=== PATIENT | female | born 1945 | race Caucasian/White ===

== ENCOUNTER 2020-03-03 10:44 | Outpatient (CLI) | payer MEDICARE, OTHER, SELFPAY ==
--- NOTE | ~2020-03-03 | XR_ITS ---
XR hip RT min 3V w AP pelvis 03/03/2020 11:38 Indication: Hip pain Procedure: 4 views of the hips Comparison: No prior studies for comparison. Findings: Mild osteoarthritis of the hips. Pelvic rings are intact. Sacral foramen are symmetric. No fracture or traumatic malalignment. There are surgical fusion changes of the lower lumbar spine with advanced lumbar spondylosis. Impression: 1: No acute bone or joint abnormality. 2: Mild osteoarthritis of the hips. Reviewed, dictated and finalized at location A. NE ADVERTISING MANAGER Impression: 1: No acute bone or joint abnormality. 2: Mild osteoarthritis of the hips.
--- NOTE | ~2020-03-03 | XR_ITS ---
XR lumbar spine min 4V 03/03/2020 11:38 Indication: Low back pain Procedure: 4 views lumbar spine Comparison: 01/08/2019 Findings: There is loss of disc height at L2-3 through L5-S1. There are pedicle screws and fixation h ardware at L3-L5. No acute fracture or traumatic malalignment. No evidence for spondylolisthesis. The re is levoscoliosis. Sacral foramen are symmetric. There are are facet hypertrophic changes at multip le levels. Impression: 1: Moderate-severe lumbar spondylosis with levoscoliosis. Posterior spinal fusion at L3-L5. Reviewed, dictated and finalized at location A. TRIC CRANE OPERATOR Impression: 1: Moderate-severe lumbar spondylosis with levoscoliosis. Posterior spinal fusi on at L3-L5.
== END 2020-03-03 10:45 | disposition home or self-care (01) ==
LOC: ANHIMG 10:54
PROVIDERS: PCP Internal Medicine; Visit Provider Neurological Surgery
DX: M96.1 Postlaminectomy syndrome, not elsewhere classified (principal); M47.896 Other spondylosis, lumbar region; Z98.1 Arthrodesis status; M16.0 Bilateral primary osteoarthritis of hip
CPT/HCPCS: 72110; 73502

== ENCOUNTER 2020-07-21 06:42 | Outpatient (CLI) | payer MEDICARE, OTHER, SELFPAY ==
--- NOTE | ~2020-07-21 | MR_ITS ---
EXAMINATION: MR lumbar spine wo/w con EXAM DATE: 07/21/2020 08:13 INDICATION: Status post lumbar fusion. Low back pain, buttock pain, left leg numbness. TECHNIQUE: Multi-sequential, multiplanar MR images of the lumbar spine were obtained without contrast . Sagittal T1, T2, T2 fat saturation images. Axial T2 weighted images. Axial T1 weighted sequence. Patient was then injected with 20 mL Multihance intravenous contrast and reimaged. Postcontrast axi al and sagittal T1-weighted fat saturation sequences were obtained. Comparison is made to prior exami nation from 02/25/2019. FINDINGS: There is moderate lumbar levoscoliosis centered at the L2-3 interspace level. The L3-5 vert ebral bodies have posterior fusion with L4 laminectomies probable L3 and L5 laminotomies. There is mo derate to severe disc disease L3-L5, moderate at L2-3 and L5-S1. 3 mm anterolisthesis L3 on L4. The v ertebral bodies are otherwise aligned. The conus medullaris terminates at the T12-L1 level and has no rmal signal intensity and morphology. Paraspinal soft tissue is unremarkable. There is some motion on the postcontrast sequences, however there may be some enhancement surrounding the nerve roots above the fusion levels, possible arachnoiditis. Also possible mild nerve root clump ing, but no nodularity to the enhancement. Level by level evaluation: T12-L1: Disc does not extend beyond the endplate margin. Facet arthropathy: None. Neural foraminal stenosis: No stenosis. Central canal stenosis: No stenosis. L1-L2: There is a minimal diffuse disc bulge. Facet arthropathy: Mild. Neural foraminal stenosis: No stenosis. Central canal stenosis: No stenosis. L2-L3: There is a moderate to large diffuse disc bulge. Facet arthropathy: Moderate to severe . Ligamentum flavum enlargement. Neural foraminal stenosis: Moderate right, mild left. Central canal stenosis: Moderate to severe. L3-L4: There is a mild to moderate diffuse disc bulge. Facet arthropathy: Poorly visualized. Neural foraminal stenosis: Moderate right, no left. Central canal stenosis: Posterior decompression. L4-L5: There is a moderate diffuse disc bulge. Facet arthropathy: Poorly visualized. Neural foraminal stenosis: Mild to moderate bilateral. Central canal stenosis: Posterior decompression. L5-S1: There is a mild to moderate diffuse disc bulge. Facet arthropathy: Moderate to severe left, mild right. Neural foraminal stenosis: Moderate left, mild to moderate right. Central canal stenosis: Mild. Compared to 2019, the posterior surgical changes are new. There is been also significant interval pro gression in the moderate to severe central canal stenosis at L2-3. IMPRESSION: 1. Interval posterior fusion, decompressive surgical changes L3-5. 2. 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 3. Spondylosis as above. Reviewed, dictated and finalized at location D.
[2020-07-21 07:34] LABS: Estimated Glomerular Filt Rate 54
== END 2020-07-21 06:43 | disposition home or self-care (01) ==
PROVIDERS: PCP Internal Medicine; Visit Provider Neurological Surgery
DX: Z98.1 Arthrodesis status (principal); M47.896 Other spondylosis, lumbar region
CPT/HCPCS: 72158; A9577

== ENCOUNTER 2020-11-04 12:02 | Outpatient (CLI) | payer MEDICARE, OTHER, SELFPAY ==
--- NOTE | ~2020-11-04 | MM_ITS ---
EXAMINATION: MM screening [facility] BI w ramu HISTORY: Screening mammogram TECHNIQUE: Craniocaudal and mediolateral oblique 3-D tomosynthesis images were obtained and synthetic 2-D images were generated. CAD analysis was submitted and interpreted. COMPARISON: 06/25/2018, 06/05/2018, 04/18/2018, 01/07/2014 BREAST PARENCHYMAL COMPOSITION: The breasts are heterogeneously dense, which may obscure small masses . FINDINGS: There is no evidence of suspicious mass, calcification, or architectural distortion to sugg est malignancy in either breast. There has been no suspicious interval change. IMPRESSION: 1. No mammographic evidence of malignancy. 2. Recommend routine screening mammography in one year. BI-RADS Category 1: Negative Reviewed, dictated and finalized at location A.
== END 2020-11-04 12:03 | disposition home or self-care (01) ==
LOC: ANHIMG 12:04
PROVIDERS: PCP Internal Medicine; Visit Provider Nurse Practitioner
DX: Z12.31 Encounter for screening mammogram for malignant neoplasm of breast (principal)
CPT/HCPCS: 77063; 77067

== ENCOUNTER 2020-12-23 02:22 | Day surgery (SDC) | payer MEDICARE, OTHER, SELFPAY ==
--- NOTE | 2020-12-22 12:59 | WPDANESEPPF ---
Anes - Initial Pre Proc Eval Procedure: Operation Date: 12/23/20 08:30 Proposed Procedures p Screening Colonoscopy - Rickey Anderson MD Date/Time: 12/22/20 12:59 Surgeon: Rickey Anderson MD Pre Op Diagnosis: hx of colon polyps Patient Data Age: 75 Gender: F Height: Weight: 100 kg Allergies Allergy/AdvReac Type Severity Reaction Status Date / Time No Known Allergies Allergy Verified 12/23/20 07:40 Home Medications Medication Instructions Recorded Confirmed Type Glucosamine Chondroitin 1 tablet PO DAILY 02/11/19 12/23/20 History [place]-3 1 tablet PO DAILY 02/11/19 12/23/20 History digoxin 125 mcg PO DAILY 02/11/19 12/23/20 History gemfibrozil 600 mg tablet 600 mg PO BID tablet 10/10/19 12/23/20 History pregabalin 75 mg capsule 75 mg PO TID #60 cap 10/10/19 12/23/20 Rx terbinafine HCl 250 mg tablet 250 mg PO DAILY 09/14/20 12/23/20 History metformin 500 mg tablet,extended 500 mg PO DAILY #90 tablet 09/28/20 12/23/20 Rx release 24 hr levothyroxine 50 mcg tablet See Rx Instructions .ROUTE 12/07/20 12/23/20 Rx .COMPLEX #90 tablet lisinopril 20 mg tablet See Rx Instructions .ROUTE 12/07/20 12/23/20 Rx .COMPLEX #90 tablet rosuvastatin 10 mg tablet See Rx Instructions .ROUTE 12/07/20 12/23/20 Rx .COMPLEX #90 tablet Patient hx anesthesia problems: none Family hx anesthesia problems: none Results Review: All pre-operative results and documents have been reviewed as part of the pre-operative evaluation. [facility] Past Medical History Medical History (Updated 12/22/20 @ 13:00 by Bladimir Young DO) Arthritis of knee Diabetes type 2, controlled Headache Hyperlipidemia Hypertension Hypothyroidism Irregular heart rate Knee problem Normal colonoscopy 12/16/2013 Trigger finger, right middle finger Family History Family History Father Family history of heart disease in male family member before age 55 Sibling Family history of heart disease in male family member before age 55 Social History Social History (Updated 10/28/20 @ 12:20 by ASHLEE Castellano Smoking packs per day: 1 Smoking cigarettes per day: 20.0 Years smoked: 25 Smoking pack-years: 25.00 Smoking status: Former smoker Tobacco type: cigarettes Second hand tobacco smoke exposure: No Smoking end date: 03/20/95 Alcohol intake: current Drinks per week: 2 Alcohol use details: occasionally Substance use: never Living arrangements: with family Gender identity (if verbalized by the patient): Female Anes - Eval Final PreProcedure Day of Procedure 12/22/20 12:59 Patient weight: obese Heart: regular rate and rhythm Lungs: clear to auscultation and normal air movement Airway: Mallampati scale class II Neurological: alert and oriented Last oral intake: >/= 8 hours ASA classification: III Emergent: no Anesthetic plan: proceed Anesthesia type and monitoring: general GIVS and standard monitoring Results Review: All pre-operative results and documents have been reviewed as part of the pre-operative evaluation. Informed Consent: The patient's anesthetic plan and its attendant risks and benefits were discussed with the patient/family/POA. Questions were solicited and answers provided to the satisfaction of the patient/family/POA.
[2020-12-23 07:40] VITALS: BMI 33.8
[2020-12-23 07:41] VITALS: BP 181/82; PULSE 78; RESP 16; TEMP 35.9; O2SAT 98
[2020-12-23] MEDS: LACTATED RINGERS 1,000 ML 150 ML IV CONT (07:46)
[2020-12-23 07:53] LABS: Glucose Point of Care 114 mg/dl (65-105)
--- NOTE | 2020-12-23 07:55 | WPDGICN ---
Assessment and Plan Assessment and plan (1) History of colon polyps: Code(s): Z86.010 - Personal history of colonic polyps Status: Acute Assessment and Plan: Patient has a history of colon polyps removed 2013. Plan is for surveillance colonoscopy at this time. Further recommendations will be given after endoscopy. GI Consult Note Consult date/time: 12/23/20 07:55 HPI: Nica Wallace is a 75 year old female Presents for screening colonoscopy. Patient has a history of colon polyps identified by colonoscopy in 2013. She reports that her current weight appetite bowel movements are normal. She denies abdominal pain. She has had no bleeding. Family history is noncontributory. Review of Systems Review of Systems: All systems reviewed & are unremarkable except as noted in HPI and below PMFSH Past Medical History Medical History (Updated 12/22/20 @ 13:00 by Bladimir Young DO) Arthritis of knee Diabetes type 2, controlled Headache Hyperlipidemia Hypertension Hypothyroidism Irregular heart rate Knee problem Normal colonoscopy 12/16/2013 Trigger finger, right middle finger Family History Family History Father Family history of heart disease in male family member before age 55 Sibling Family history of heart disease in male family member before age 55 Social History Social History (Updated 10/28/20 @ 12:20 by Citlali Platt CNA) Smoking packs per day: 1 Smoking cigarettes per day: 20.0 Years smoked: 25 Smoking pack-years: 25.00 Smoking status: Former smoker Tobacco type: cigarettes Second hand tobacco smoke exposure: No Smoking end date: 03/20/95 Alcohol intake: current Drinks per week: 2 Alcohol use details: occasionally Substance use: never Living arrangements: with family Gender identity (if verbalized by the patient): Female Meds Home Medications and Allergies Home Medications Medication Instructions Recorded Confirmed Type Glucosamine Chondroitin 1 tablet PO DAILY 02/11/19 12/23/20 History [place]flake-3 1 tablet PO DAILY 02/11/19 12/23/20 History digoxin 125 mcg PO DAILY 02/11/19 12/23/20 History gemfibrozil 600 mg tablet 600 mg PO BID tablet 10/10/19 12/23/20 History pregabalin 75 mg capsule 75 mg PO TID #60 cap 10/10/19 12/23/20 Rx terbinafine HCl 250 mg tablet 250 mg PO DAILY 09/14/20 12/23/20 History metformin 500 mg tablet,extended 500 mg PO DAILY #90 tablet 09/28/20 12/23/20 Rx release 24 hr levothyroxine 50 mcg tablet See Rx Instructions .ROUTE 12/07/20 12/23/20 Rx .COMPLEX #90 tablet lisinopril 20 mg tablet See Rx Instructions .ROUTE 12/07/20 12/23/20 Rx .COMPLEX #90 tablet rosuvastatin 10 mg tablet See Rx Instructions .ROUTE 12/07/20 12/23/20 Rx .COMPLEX #90 tablet Allergies Allergy/AdvReac Type Severity Reaction Status Date / Time No Known Allergies Allergy Verified 12/23/20 07:40 Vital Signs Vital Signs - 24 hr 12/23/20 07:41 Temperature 96.7 F L Pulse Rate 78 Respiratory Rate 16 Blood Pressure 181/82 H Pulse Oximetry 98 Exam Narrative: Physical exam reveals patient be alert. Vital signs stable. HEENT exam is unremarkable. Patient is anicteric. Lungs are clear to auscultation and percussion. Heart is without murmur or extra sounds. Abdominal exam bowel sounds are present soft nontender with no organomegaly. Digital external rectal exam is normal.
[2020-12-23 08:46] VITALS: BP 133/70; PULSE 76; RESP 21; O2SAT 96
[2020-12-23 08:56] VITALS: BP 132/66; PULSE 64; RESP 15; O2SAT 100
[2020-12-23 09:06] VITALS: BP 144/75; PULSE 60; RESP 18; O2SAT 100
== END 2020-12-23 09:38 | disposition home or self-care (01) ==
PROVIDERS: PCP Internal Medicine; Visit Provider Internal Medicine Gastroenterology
PROC: 0DJD8ZZ Inspection of Lower Intestinal Tract, Via Natural or Artificial Opening Endoscopic (ICD-10-PCS; CPT 45378; principal; 2020-12-23 08:30)
DX: Z12.11 Encounter for screening for malignant neoplasm of colon (principal); D12.2 Benign neoplasm of ascending colon; K63.5 Polyp of colon; K64.8 Other hemorrhoids; E11.9 Type 2 diabetes mellitus without complications; E78.5 Hyperlipidemia, unspecified; I10 Essential (primary) hypertension; E03.9 Hypothyroidism, unspecified; Z87.891 Personal history of nicotine dependence; E66.9 Obesity, unspecified; Z68.33 Body mass index [BMI] 33.0-33.9, adult; Z79.84 Long term (current) use of oral hypoglycemic drugs
CPT/HCPCS: 45385; 82948; 88305; J2704; J7120

== ENCOUNTER 2021-01-11 14:10 | Emergency (ER) | payer MEDICARE, OTHER, SELFPAY ==
[2021-01-11 14:20] VITALS: BP 155/71; PULSE 73; RESP 16; TEMP 36.1; O2SAT 99
--- NOTE | 2021-01-11 14:35 | ED.GENADULT ---
HPI - General Adult General Chief complaint: Epistaxis Stated complaint: High blood pressure,nose bleeding Time Seen by Provider: 01/11/21 14:30 Source: patient, RN notes reviewed and old records reviewed Mode of arrival: ambulatory Limitations: no limitations History of Present Illness HPI narrative: 75-year-old female presents to express care with complaints of awakening this morning with a nose bleed that took quite a while to get it to stop by applying pressure to her nose. Patient denies any headache, dizziness or any sinus congestion or other ill symptoms. She states that she then again got a nose bleed this afternoon and she checked her blood pressure at home with her machine stating that her systolic blood pressure was over 200. Patient states that her nose quit bleeding on route to express care. Patient on triage has blood pressure of 155/71 and rechecked manually with reading of 160/80 obtained. Patient state that she has not seen her PCP for about a year. and has been on same blood pressure medication for quite some time. Patient has steady gait with no dizziness stated, no headache with patient alert and oriented X3. MD complaint: Blood pressure elevated at home with episode of nose bleed Related Data Home Medications Medication Instructions Recorded Confirmed Glucosamine Chondroitin 1 tablet PO DAILY 02/11/19 01/12/21 [place]-3 1 tablet PO DAILY 02/11/19 01/12/21 digoxin 125 mcg PO DAILY 02/11/19 01/12/21 gemfibrozil 600 mg tablet 600 mg PO BID tablet 10/10/19 01/12/21 terbinafine HCl 250 mg tablet 250 mg PO DAILY 09/14/20 01/12/21 Allergies Allergy/AdvReac Type Severity Reaction Status Date / Time No Known Allergies Allergy Verified 01/12/21 08:00 Review of Systems Review of Systems: CONSTITUTIONAL: Denies fever, chills, or sweats. EYES: Denies visual changes, redness, or discharge. ENT: Denies rhinorrhea, congestion, sore throat, or otalgia, reported episodes of epistaxis X2 today CARDIOVASCULAR: Denies chest pain, palpitations, or edema. RESPIRATORY: Denies cough or dyspnea. GASTROINTESTINAL: Denies abdominal pain, nausea, vomiting, or diarrhea. GENITOURINARY: Denies dysuria or hematuria. SKIN: Denies rash or itching. MUSCULOSKELETAL: Denies back pain, joint pain, or myalgia. NEUROLOGIC: Denies headache, numbness, or weakness. PSYCHIATRIC: Denies anxiety or depression. All systems reviewed & are unremarkable except as noted in HPI and below PMFSH Past Medical History Medical History (Updated 01/14/21 @ 10:44 by Serena Rodas NP) Arthritis of knee Diabetes type 2, controlled Headache Hyperlipidemia Hypertension Hypothyroidism Irregular heart rate Knee problem Normal colonoscopy 12/16/2013 Trigger finger, right middle finger Surgical History Surgical History (Updated 01/14/21 @ 10:32 by Serena Rodas NP) History of spinal surgery Family History Family History Father Family history of heart disease in male family member before age 55 Sibling Family history of heart disease in male family member before age 55 Social History Social History (Updated 01/12/21 @ 07:59 by Citlali Platt CNA) Smoking packs per day: 1 Smoking cigarettes per day: 20.0 Years smoked: 25 Smoking pack-years: 25.00 Tobacco type: cigarettes Second hand tobacco smoke exposure: No Smoking end date: 03/20/95 Alcohol intake: current Drinks per week: 2 Alcohol use details: occasionally Substance use: never Substance use type: does not use Gender identity (if verbalized by the patient): Female Comments At time of signature agree with nursing documentation of pst medical, surgical, social and family hitory. There is no pertinent family history that is relevant to presenting complaint. Exam Narrative: GENERAL: Well-appearing, well-nourished, and in no acute distress. HEAD: Normocephalic, atraumatic. EYES: PERRLA and EOMI. EN
== END 2021-01-11 15:03 | disposition home or self-care (01) ==
PROVIDERS: Emergency Provider Registered Nurse; PCP Internal Medicine
DX: R04.0 Epistaxis (principal); I11.0 Hypertensive heart disease with heart failure; F17.210 Nicotine dependence, cigarettes, uncomplicated; E11.9 Type 2 diabetes mellitus without complications; E78.5 Hyperlipidemia, unspecified; E03.9 Hypothyroidism, unspecified; M17.10 Unilateral primary osteoarthritis, unspecified knee
CPT/HCPCS: 99211; G0463

== ENCOUNTER 2021-01-11 20:24 | Emergency (ER) | payer MEDICARE, OTHER, SELFPAY ==
[2021-01-11] VITALS (7 sets, daily range): BP systolic 141–202; BP diastolic 74–105; PULSE 65–75; RESP 13–22; TEMP 36.6; O2SAT 95–97
--- NOTE | 2021-01-11 20:35 | ECG_ITS ---
Measurements Intervals [place] Rate: 68 P: 22 WV: 157 QRS: 8 QRSD: 99 T: 61 QT: 395 QTc: 420 Interpretive Statements SINUS RHYTHM BASELINE WANDER- V4 NORMAL ECG Electronically Signed On 01-11-2021 23:00:13 CDT by Sameer Bledsoe D.O.
[2021-01-11 21:00] LABS: Basophils Absolute Auto 0.1 K/mm3 (0.0-0.1); Basophils Percent Auto 1.4 % (0.2-1.2); Eosinophils Absolute Auto 0.1 K/mm3 (0-0.3); Eosinophils Percent Auto 2.1 % (0-4.4); Hematocrit 44.7 % (37.0-47.0); Hemoglobin 15.3 g/dL (12.0-15.0); Immature Granulocyte Absolute 0.01 K/mm3 (0.00-0.031); Immature Granulocyte Percent A 0.2 % (0-0.5); Lymphocytes Percent Auto 34.2 % (18.3-44.2); Mean Corpuscular HGB Conc 34.2 g/dl (32-36); Mean Corpuscular Hemoglobin 30.5 pg (26-34); Mean Platelet Volume 9.9 fl (7.4-10.4); Monocytes Absolute Auto 0.4 K/mm3 (0.1-0.6); Monocytes Percent Auto 9.8 % (2.6-8.5); Neutrophils Absolute Auto 2.3 K/mm3 (1.3-6.7); Neutrophils Percent Auto 52.3 % (45.5-73.1); Platelet Count Result 200 k/mm3 (150-375); Red Blood Count 5.02 M/mm3 (4.2-5.4); Red Cell Distribution Width 13.1 % (11.5-14.5); White Blood Count 4.4 K/mm3 (4.5-10.0)
[2021-01-11 21:12] LABS: Alanine Aminotransferase 38 U/L (4-35); Albumin Level 4.6 g/dL (3.5-5.1); Alkaline Phosphatase 82 U/L (38-126); Anion Gap 11 mmol/L (8-16); Aspartate Amino Transferase 50 U/L (14-36); Bilirubin,Total 0.6 mg/dL (0.2-1.3); Blood Urea Nitrogen 21 mg/dL (7-17); Calcium 10.3 mg/dL (8.4-10.2); Carbon Dioxide 25 mmol/L (22-30); Chloride 107 mmol/L (98-107); Estimated CRCL calculation 51 ml/min; Estimated Glomerular Filt Rate 54; Glucose 130 mg/dL (65-110); Sodium 143 mmol/L (137-145)
[2021-01-11 21:33] LABS: Add Urine Microscopic? YES; Appearance Urine Cloudy (Clear); Bilirubin Urine Negative (Negative); Blood Urine Negative (Negative); Color Urine Yellow (Yellow); Glucose Urine UA Negative (Negative); Ketones Urine Negative (Negative); Leukocyte Esterase Ur 1+ LEU/UL (Negative); Mucus Urine Rare /lpf; Nitrate Urine Negative (Negative); Protein Urine Negative (Negative); Specific Grav Ur 1.017 (1.001-1.035); Squamous Epithelial Cell Urine Occasional /hpf (Few); Urobilinogen Urine Negative mg/dL (<2.0)
--- NOTE | 2021-01-11 22:03 | ED.GENADULT ---
HPI - General Adult General Chief complaint: Recheck/Abnormal Lab/Rx Stated complaint: high blood pressure Time Seen by Provider: 01/11/21 22:02 Source: patient Mode of arrival: ambulatory Limitations: no limitations History of Present Illness HPI narrative: Patient is a 75-year-old female complaining of elevated blood pressure at home, 230s over 100s . Patient is asymptomatic with the elevated blood pressure. Patient did state that she had a brief nosebleed earlier but now resolved. Patient denies any headache, dizziness, speech or visual disturbance, focal weakness or numbness, unsteady gait, chest pain, shortness of breath, abdominal pain, nausea or vomiting. Related Data Home Medications Medication Instructions Recorded Confirmed Glucosamine Chondroitin 1 tablet PO DAILY 02/11/19 01/11/21 [place]-3 1 tablet PO DAILY 02/11/19 01/11/21 digoxin 125 mcg PO DAILY 02/11/19 01/11/21 gemfibrozil 600 mg tablet 600 mg PO BID tablet 10/10/19 01/11/21 terbinafine HCl 250 mg tablet 250 mg PO DAILY 09/14/20 01/11/21 Allergies Allergy/AdvReac Type Severity Reaction Status Date / Time No Known Allergies Allergy Verified 01/11/21 14:15 Review of Systems Review of Systems: All systems reviewed & are unremarkable except as noted in HPI and below Constitutional: Constitutional: Denies body ache(s), Denies chills, Denies excessive sweating, Denies fatigue, Denies fever(s), Denies headache(s), Denies lethargy, Denies malaise, Denies weakness and Denies weight loss Eyes: Eyes: Denies blurry vision, Denies change in vision and Denies loss of vision ENT: Denies dizziness, Denies ear discharge, Denies headache(s), Denies lip swelling, Denies epistaxis, Denies nasal congestion, Denies neck pain, Denies throat swelling and Denies tongue swelling Cardiovascular: Cardiovascular: Denies chest pain, Denies chest pain at rest, Denies chest pain with activity, Denies diaphoresis, Denies rapid heart rate, Denies edema, Denies irregular heart rhythm, Denies lightheadedness, Denies palpitations, Denies dyspnea and Denies dyspnea on exertion Respiratory: Respiratory: Denies chest congestion, Denies cough, Denies hemoptysis, Denies dyspnea and Denies dyspnea on exertion Gastrointestinal: Gastrointestinal: Denies abdominal pain, Denies melena, Denies hematochezia, Denies diarrhea, Denies nausea, Denies vomiting and Denies hematemesis Musculoskeletal: Musculoskeletal: Denies abnormal gait, Denies deformity, Denies joint swelling, Denies limited range of motion, Denies neck pain and Denies numbness Neurologic: Denies Abnormal speech present, Denies abnormal gait, Denies confusion, Denies dizziness, Denies headache(s), Denies focal weakness, Denies loss of vision, Denies numbness, Denies Other visual disturbances, Denies Sensory deficit (Neuro) and Denies weakness Psychiatric: Psychiatric: Denies confusion, Denies depression, Denies auditory hallucinations, Denies homicidal ideation and Denies suicidal ideation Endocrine: Endocrine: Denies cold intolerance, Denies excessive sweating, Denies fatigue, Denies heat intolerance and Denies palpitations Hematologic/Lymphatic: Hematologic/Lymphatic: Denies easy bleeding and Denies easy bruising Allergic/Immunologic: Allergic/Immunologic: Denies lip swelling, Denies throat swelling and Denies tongue swelling PMFSH Past Medical History Medical History Arthritis of knee Diabetes type 2, controlled Headache Hyperlipidemia Hypertension Hypothyroidism Irregular heart rate Knee problem Normal colonoscopy 12/16/2013 Trigger finger, right middle finger Family History Family History Father Family history of heart disease in male family member before age 55 Sibling Family history of heart disease in male family member before age 55 Social History Social History (Reviewed 01/11/21 @ 22:04 by Mitchel Gutiérrez
== END 2021-01-11 23:56 | disposition home or self-care (01) ==
PROVIDERS: Physician Assistant; Emergency Provider Emergency Medicine; PCP Internal Medicine
DX: I10 Essential (primary) hypertension (principal); E11.9 Type 2 diabetes mellitus without complications; E78.5 Hyperlipidemia, unspecified; E03.9 Hypothyroidism, unspecified; M17.10 Unilateral primary osteoarthritis, unspecified knee; Z87.891 Personal history of nicotine dependence; Z79.84 Long term (current) use of oral hypoglycemic drugs
CPT/HCPCS: 36415; 80053; 81001; 85025; 93005; 99282; 99283

== ENCOUNTER 2021-05-14 09:25 | Emergency (ER) | payer MEDICARE, OTHER, SELFPAY ==
[2021-05-14 09:41] VITALS: BP 127/67; PULSE 79; RESP 16; TEMP 36.8; O2SAT 99
--- NOTE | 2021-05-14 10:20 | ED.SKABFB ---
HPI - Skin/Abscess/Foreign Bdy General Chief complaint: Skin/Abscess/Foreign Body Stated complaint: Sore on butt Time Seen by Provider: 05/14/21 10:20 Source: patient Mode of arrival: ambulatory Limitations: no limitations History of Present Illness HPI narrative: Nica Espinoza is a 75 yo female with a PMH of high blood pressure, high cholesterol, hypothyroid, diabetes, neuropathy who comes to [facility] with an abscess of the left upper gluteal gluteus near the anal cleft that started a few weeks ago but is the last few days is gotten enlarged and sore Related Data Home Medications Medication Instructions Recorded Confirmed Glucosamine Chondroitin 1 tablet PO DAILY 02/11/19 05/14/21 [place]-3 1 tablet PO DAILY 02/11/19 05/14/21 gemfibrozil 600 mg tablet 600 mg PO BID tablet 10/10/19 05/14/21 digoxin 125 mcg (0.125 mg) tablet 125 mcg PO DAILY 03/08/21 05/14/21 Allergies Allergy/AdvReac Type Severity Reaction Status Date / Time No Known Allergies Allergy Verified 05/07/21 13:07 Review of Systems Review of Systems: CONSTITUTIONAL: Denies fever, chills, sweats. EYES: Denies visual changes, redness, discharge. ENT: Denies rhinorrhea, congestion, sore throat, otalgia. CARDIOVASCULAR: Denies chest pain, palpitations, edema. RESPIRATORY: Denies dyspnea, wheezing, cough GASTROINTESTINAL: Denies abdominal pain, nausea, vomiting, diarrhea. GENITOURINARY: Denies dysuria, hematuria, abnormal discharge SKIN: Denies rash or itching. Abscess of upper left gluteal area NEUROLOGIC: Denies numbness, or focal weakness. PSYCHIATRIC: Denies anxiety or depression. [facility] Past Medical History Medical History Arthritis of knee Diabetes type 2, controlled Headache Hyperlipidemia Hypertension Hypothyroidism Irregular heart rate Knee problem Normal colonoscopy 12/16/2013 Trigger finger, right middle finger Surgical History Surgical History History of spinal surgery Family History Family History Father Family history of heart disease in male family member before age 55 Sibling Family history of heart disease in male family member before age 55 Social History Social History Smoking packs per day: 1 Smoking cigarettes per day: 20.0 Years smoked: 25 Smoking pack-years: 25.00 Smoking status: Former smoker Tobacco type: cigarettes Second hand tobacco smoke exposure: No Smoking end date: 03/20/95 Alcohol intake: current Drinks per week: 2 Alcohol use details: occasionally Substance use: never Substance use type: does not use Gender identity (if verbalized by the patient): Female Comments At time of signature, I agree with nursing past medical, surgical, social and family history. There is no relevant family history pertinent to the presenting complaint. Exam Narrative: GENERAL: This is a well-nourished, well-developed patient, in mild distress. HEAD: normocephalic, atraumatic. EYES: Sclera clear/white. Vision is grossly intact. EARS: External ears normal, Hearing grossly intact. NOSE: External nose normal without nasal discharge, nares without redness, no rhinorrhea. THROAT: Mucous membranes moist, NECK: Neck supple, non-tender CARDIOVASCULAR: Regular rate and rhythm without murmurs, gallops, or rubs. RESPIRATORY: Clear to auscultation. Breath sounds equal bilaterally. No wheezes, rales, or rhonchi. GASTROINTESTINAL: Abdomen soft, non-tender, SKIN: warm, intact with no suspicious lesions or rash, good texture and turgor. Abscess to left upper gluteal area, red and tender NEURO: awake, alert, and oriented to person, place and time. There were no obvious focal neurologic abnormalities. Steady gait EXTREMITIES: Normal range of motion. BACK: Nontender without deformity
--- NOTE | 2021-05-14 10:39 | PC.NURSE ---
pt moved to exam room 1. pt lying down on stretcher.
--- NOTE | 2021-05-14 11:11 | PC.NURSE ---
wound drained, irrigated and packed by Catarino Graham CNP
== END 2021-05-14 11:29 | disposition home or self-care (01) ==
PROVIDERS: Emergency Provider Nurse Practitioner; PCP Internal Medicine
DX: L98.9 Disorder of the skin and subcutaneous tissue, unspecified (principal); L02.31 Cutaneous abscess of buttock; Z87.891 Personal history of nicotine dependence; E78.5 Hyperlipidemia, unspecified; I10 Essential (primary) hypertension; E03.9 Hypothyroidism, unspecified; M17.10 Unilateral primary osteoarthritis, unspecified knee; E11.40 Type 2 diabetes mellitus with diabetic neuropathy, unspecified
CPT/HCPCS: 10061; 99213; G0463

== ENCOUNTER 2021-09-14 09:09 | Emergency (ER) | payer MEDICARE, OTHER, SELFPAY ==
[2021-09-14 09:17] VITALS: BP 191/105; PULSE 101; RESP 18; O2SAT 97
--- NOTE | 2021-09-14 09:32 | ED.EPISTAXIS ---
HPI - Epistaxis General Chief complaint: Epistaxis Stated complaint: nosebleed Time Seen by Provider: 09/14/21 09:20 History of Present Illness HPI Narrative: Pt presents with nosebleed for about 30 minutes. Pt has intermittent nosebleeds but usually mild. Pt says her BP is elevated and thinks this may be contributing. Pt denies GROVE. Pt was about to take her BP pill when this started. Related Data Home Medications Medication Instructions Recorded Confirmed Glucosamine Chondroitin 1 tablet PO DAILY 02/11/19 08/04/21 Harold-3 1 tablet PO DAILY 02/11/19 08/04/21 gemfibrozil 600 mg tablet 600 mg PO BID 10/10/19 08/04/21 digoxin 125 mcg (0.125 mg) tablet 125 mcg PO DAILY 03/08/21 08/04/21 Allergies Allergy/AdvReac Type Severity Reaction Status Date / Time No Known Allergies Allergy Verified 08/04/21 07:42 Review of Systems Review of Systems: All systems reviewed & are unremarkable except as noted in HPI and below PMFSH Past Medical History Medical History Arthritis of knee Diabetes type 2, controlled Headache Hyperlipidemia Hypertension Hypothyroidism Irregular heart rate Knee problem Normal colonoscopy 12/16/2013 Trigger finger, right middle finger Surgical History Surgical History History of spinal surgery Family History Family History Father Family history of heart disease in male family member before age 55 Sibling Family history of heart disease in male family member before age 55 Social History Social History Smoking packs per day: 1 Smoking cigarettes per day: 20.0 Years smoked: 25 Smoking pack-years: 25.00 Smoking status: Former smoker Tobacco type: cigarettes Second hand tobacco smoke exposure: No Smoking end date: 03/20/95 Alcohol intake: current Drinks per week: 2 Alcohol use details: occasionally Substance use: never Substance use type: does not use Gender identity (if verbalized by the patient): Female Exam Const: General: healthy appearing Nutritional Appearance: well nourished Orientation/consciousness: patient oriented x3 Limitations: no limitations HENMT: General nose exam: Epistaxis present (minor bleeding noted) Eyes: Pupils: Equal, round and reactive pupils present EOM: EOMs intact bilaterally Direct Ophthalmoscopy: no photophobia Neck: Neck: normal visual inspection, no lymphadenopathy and no meningeal signs Chest: Chest palpation & inspection: normal inspection of the chest Resp: Effort & Inspection: normal respiratory effort Auscultation: clear to auscultation bilaterally Cardio: Rate: regular rate Rhythm: regular rhythm GI: GI Palp: Yes Soft to palpation Auscultation: normal bowel sounds Skin: General skin exam: normal color Rashes: no rashes Wounds: no wounds Neuro: General: patient oriented x3, moves all extremities, no meningeal signs and no focal motor deficits Cranial nerves: Yes Nystagmus not present Speech: normal speech Gait exam (Neuro): Normal gait present Extrem: General: normal to inspection Psych: Mental Status: mental status grossly normal Affect: normal affect Attitude: cooperative Course Vital Signs Vital signs: Vital Signs Pulse Rate 101 H 09/14/21 09:17 Respiratory Rate 18 09/14/21 09:17 Blood Pressure 191/105 H 09/14/21 09:17 Pulse Oximetry 97 09/14/21 09:17 Oxygen Delivery Room Air 09/14/21 09:17 Pulse Rate 67 09/14/21 11:21 Respiratory Rate 18 09/14/21 11:21 Blood Pressure 129/61 09/14/21 11:21 Pulse Oximetry 98 09/14/21 11:21 Oxygen Delivery Room Air 09/14/21 09:17 MDM - Epistaxis Lab Data Result diagrams: 09/14/21 09:42 09/14/21 09:42 Labs: Lab Results 09/14/21 09/14/21 09/14/21 Range/Units
[2021-09-14 09:51] LABS: Basophils Absolute Auto 0.1 K/mm3 (0.0-0.1); Basophils Percent Auto 1.4 % (0.2-1.2); Eosinophils Absolute Auto 0.1 K/mm3 (0-0.3); Eosinophils Percent Auto 2.1 % (0-4.4); Hematocrit 44.5 % (37.0-47.0); Hemoglobin 15.4 g/dL (12.0-15.0); Immature Granulocyte Absolute 0.01 K/mm3 (0.00-0.031); Immature Granulocyte Percent A 0.2 % (0-0.5); Lymphocytes Percent Auto 30.2 % (18.3-44.2); Mean Corpuscular HGB Conc 34.6 g/dl (32-36); Mean Corpuscular Hemoglobin 30.1 pg (26-34); Mean Corpuscular Volume 87.1 fl (80-100); Mean Platelet Volume 9.8 fl (7.4-10.4); Monocytes Absolute Auto 0.5 K/mm3 (0.1-0.6); Monocytes Percent Auto 10.7 % (2.6-8.5); Neutrophils Absolute Auto 2.4 K/mm3 (1.3-6.7); Neutrophils Percent Auto 55.4 % (45.5-73.1); Platelet Count Result 191 k/mm3 (150-375); Red Blood Count 5.11 M/mm3 (4.2-5.4); Red Cell Distribution Width 12.7 % (11.5-14.5); White Blood Count 4.3 K/mm3 (4.5-10.0)
[2021-09-14 10:02] LABS: Prothrombin Time 12.9 Seconds (11.1-14.7)
[2021-09-14 10:03] LABS: Partial Thromboplastin Time 30.6 SECONDS (22.3-36.8)
[2021-09-14 10:08] LABS: Alanine Aminotransferase 34 U/L (6-35); Albumin Level 4.8 g/dL (3.5-5.1); Alkaline Phosphatase 65 U/L (38-126); Anion Gap 10 mmol/L (8-16); Aspartate Amino Transferase 37 U/L (14-36); Bilirubin,Total 0.5 mg/dL (0.2-1.3); Blood Urea Nitrogen 21 mg/dL (7-17); Calcium 9.4 mg/dL (8.4-10.2); Carbon Dioxide 23 mmol/L (22-30); Chloride 108 mmol/L (98-107); Estimated CRCL calculation 55 ml/min; Estimated Glomerular Filt Rate > 60; Glucose 143 mg/dL (65-110); Sodium 141 mmol/L (137-145)
[2021-09-14 11:21] VITALS: BP 129/61; PULSE 67; RESP 18; O2SAT 98
== END 2021-09-14 11:22 | disposition home or self-care (01) ==
PROVIDERS: Emergency Provider Emergency Medicine; PCP Internal Medicine
DX: R04.0 Epistaxis (principal); E11.9 Type 2 diabetes mellitus without complications; E78.5 Hyperlipidemia, unspecified; I10 Essential (primary) hypertension; E03.9 Hypothyroidism, unspecified; M17.10 Unilateral primary osteoarthritis, unspecified knee; Z87.891 Personal history of nicotine dependence; Z79.84 Long term (current) use of oral hypoglycemic drugs
CPT/HCPCS: 36415; 80053; 85025; 85610; 85730; 99283

== ENCOUNTER 2022-03-25 07:54 | Outpatient (CLI) | payer MEDICARE, OTHER, SELFPAY ==
--- NOTE | ~2022-03-25 | MM_ITS ---
EXAMINATION: MM screening [facility] BI w ramu HISTORY: Screening mammogram TECHNIQUE: Craniocaudal and mediolateral oblique 3-D tomosynthesis images were obtained and synthetic 2-D images were generated. CAD analysis was submitted and interpreted. COMPARISON: 11/04/2020, 06/25/2018, 06/05/2018, 04/19/2017 BREAST PARENCHYMAL COMPOSITION: The breasts are heterogeneously dense, which may obscure small masses . FINDINGS: No suspicious mass, calcification, or architectural distortion are identified in either ada ast to suggest malignancy. There has been no suspicious interval change. IMPRESSION: 1. No mammographic evidence of malignancy. 2. Recommend routine screening mammography in one year. BI-RADS Category 1: Negative Reviewed, dictated and finalized at location A. LE PRODUCT MANAGER
== END 2022-03-25 07:55 | disposition home or self-care (01) ==
LOC: ANHIMG 07:56
PROVIDERS: PCP Internal Medicine; Visit Provider Internal Medicine
DX: Z12.31 Encounter for screening mammogram for malignant neoplasm of breast (principal)
CPT/HCPCS: 77063; 77067

== ENCOUNTER 2022-05-18 10:09 | Outpatient (CLI) | payer MEDICARE, OTHER, SELFPAY ==
--- NOTE | ~2022-05-18 | US_ITS ---
EXAMINATION: US thyroid DATE: 05/18/2022 10:37 INDICATION: Nontoxic single thyroid nodule. TECHNIQUE: Multiple ultrasound images of the thyroid were obtained. COMPARISON: None. FINDINGS: The right thyroid lobe measures 5.4 x 1.8 x 1.8 cm. The left thyroid lobe measures 4.1 x 1.2 x 1.3 c m. In the right thyroid lobe, there is an 11 mm solid, hypoechoic, wider than tall nodule with ill-d efined margin without echogenic foci (TI-RADS TR4). In the right thyroid lobe, there is a 6 mm predom inantly solid, hypoechoic, wider than tall nodule with smooth margin without echogenic foci (TR4). In the right thyroid lobe, there is a 9 mm solid, isoechoic, wider than tall nodule with ill-defined ma rgin without echogenic foci (TR3). IMPRESSION: 1. Small thyroid nodules. Consider thyroid ultrasound in one year. Reviewed, dictated and finalized at location A. HYSICS SCIENTIST
== END 2022-05-18 10:10 | disposition home or self-care (01) ==
PROVIDERS: PCP Internal Medicine; Visit Provider Internal Medicine
DX: E04.2 Nontoxic multinodular goiter (principal)
CPT/HCPCS: 76536

== ENCOUNTER 2023-03-15 10:04 | Outpatient (CLI) | payer MEDICARE, OTHER, SELFPAY ==
--- NOTE | 2023-03-15 10:18 | ECG_ITS ---
Measurements Intervals [place] Rate: 76 P: 6 [place]: 172 QRS: 9 QRSD: 94 T: 57 QT: 378 QTc: 427 Interpretive Statements SINUS RHYTHM WITH OCCASIONAL SUPRAVENTRICULAR PREMATURE COMPLEXES NO PREVIOUS ECG AVAILABLE FOR COMPARISON Electronically Signed On 03-15-2023 20:54:14 OUTPATIENT PHLEBOTOMIST by Isaias Mixon M.D.
[2023-03-15 10:58] LABS: Anion Gap 12 mmol/L (8-16); Blood Urea Nitrogen 17 mg/dL (7-17); Calcium 9.5 mg/dL (8.4-10.2); Carbon Dioxide 21 mmol/L (22-30); Chloride 106 mmol/L (98-107); Estimated Glomerular Filt Rate > 60; Glucose 192 mg/dL (65-110); Potassium 3.9 mmol/L (3.4-5.0); Sodium 139 mmol/L (137-145)
[2023-03-15 11:12] LABS: Digoxin 1.1 ng/mL (0.8-2.0)
== END 2023-03-15 10:05 | disposition home or self-care (01) ==
PROVIDERS: PCP Internal Medicine; Visit Provider Anesthesiology
DX: E11.9 Type 2 diabetes mellitus without complications (principal); E03.9 Hypothyroidism, unspecified; Z51.81 Encounter for therapeutic drug level monitoring; I10 Essential (primary) hypertension; Z01.818 Encounter for other preprocedural examination
CPT/HCPCS: 36415; 80048; 80162; 93005

== ENCOUNTER 2023-03-17 05:56 | Day surgery (SDC) | payer MEDICARE, OTHER, SELFPAY ==
[2023-03-08 13:42] VITALS: BMI 33.8
--- NOTE | 2023-03-08 14:18 | PC.NURSE ---
PREOP INTERVIEW COMPLETED. PT STATES SHE RETURNED FROM [facility] ON 02/25/23. COVID SYMPTOMS BEGAN AND TESTED POSITIVE ON Monday03/04/23. PT STATES ONLY SYMPTOM IS SINUS CONGESTION. DELMY THE INFECTION CONTROL NURSE NOTIFIED. SHE STATES PT SHOULD BE FINE TO PROCEED WITH SURGERY ON 03/17/23. WILL NOTIFY ANESTHESIOLOGIST.
--- NOTE | 2023-03-09 07:55 | PC.NURSE ---
SPOKE WITH DR KHAN REGARDING PT'S CURRENT COVID. OK TO PROCEED WITH SURGERY ON 03/17/23. PT NOTIFIED.
--- NOTE | 2023-03-16 12:15 | WPDANESEPPF ---
Anes - Initial Pre Proc Eval Procedure: Operation Date: 03/17/23 07:30 Proposed Procedures p Arthrodesis First Metatarsophalangeal Joint Right Foot - Mack Georges JR, MD s Ruth Shortening Second and Third Metatarsal Osteotomy Right Foot - Mack Georges JR, MD s Hammer Toe Repair Second Digit Right Foot - Mack Georges JR, MD Date/Time: 03/16/23 12:15 Surgeon: Mack Georges JR, MD Pre Op Diagnosis: Athritic Bunion, Metatarsalgia & Hammer Toe RT.FT Patient Data Age: 77 Gender: F Height: 1.7 m Weight: 98 kg Allergies Allergy/AdvReac Type Severity Reaction Status Date / Time No Known Allergies Allergy Verified 03/17/23 06:45 Home Medications Medication Instructions Recorded Confirmed Type digoxin 125 mcg (0.125 mg) tablet 125 mcg PO DAILY 03/08/21 03/17/23 History pregabalin 75 mg capsule (Lyrica) 75 mg PO BID 3 months #180 caps 06/02/22 03/17/23 Rx metformin 500 mg tablet,extended 500 mg PO DAILY #90 tabs 08/16/22 03/17/23 Rx release 24 hr levothyroxine 50 mcg tablet See Rx Instructions .Route 10/14/22 03/17/23 Rx .COMPLEX #90 tabs amlodipine 5 mg tablet 5 mg PO DAILY #90 tabs 11/23/22 03/17/23 Rx gemfibrozil 600 mg tablet 300 mg PO DAILY 11/23/22 03/17/23 History levomefolate Ca 3 mg-B6 35 1 cap PO BID 11/23/22 03/17/23 History mg-meB12 2 mg-algal oil 90.314 mg capsule (Metanx (algal oil)) lisinopril 40 mg tablet 40 mg PO DAILY #90 tabs 11/23/22 03/17/23 Rx rosuvastatin 5 mg tablet 5 mg PO DAILY #90 tabs 11/23/22 03/17/23 Rx Patient hx anesthesia problems: none Family hx anesthesia problems: none Results Review: All pre-operative results and documents have been reviewed as part of the pre-operative evaluation. [facility] Past Medical History Medical History (Updated 03/16/23 @ 12:15 by Bladimir Young DO) Arthritis of knee Atrial fibrillation Diabetes type 2, controlled Headache Hyperlipidemia Hypertension Hypothyroidism Irregular heart rate Knee problem Lumbar degenerative disc disease Normal colonoscopy 12/16/2013 Peripheral neuropathy Trigger finger, right middle finger Ulnar nerve entrapment Surgical History Surgical History History of spinal surgery Family History Family History (Updated 11/23/22 @ 13:49 by Jamilah Marie CMA) Father Family history of heart disease in male family member before age 55 Sibling Family history of heart disease in male family member before age 55 Mother Diabetes mellitus Hypertension Depression Thyroid disorder Grandparent Diabetes mellitus Cancer Social History Social History Smoking packs per day: 1 Smoking cigarettes per day: 20.0 Years smoked: 25 Smoking pack-years: 25.00 Smoking status: Former smoker Tobacco type: cigarettes Second hand tobacco smoke exposure: Yes Smoking end date: 03/20/95 Alcohol intake: current Drinks per week: 1 Alcohol use details: 3 PER MONTH Substance use: never Substance use type: does not use Lack of Transportation: No Lack of Food: Never True Current Housing: I Have Housing Concerned About Future Housing: No Difficulty Paying Gas/Electric Bills: No Difficulty Paying for Meds: No Currently Unemployed: No Education: High School Diploma/GED Difficulty w/ Childcare or Family Care: No Living arrangements: with family Gender identity (if verbalized by the patient): Female Spiritual care concerns: No Anes - Eval Final PreProcedure Day of Procedure 03/16/23 12:15 Patient weight: obese Heart: regular rate and rhythm Lungs: clear to auscultation Airway: Mallampati scale class II Neurological: alert and oriented Last oral intake: >/= 8 hours ASA classification: III Emergent: no Anesthetic plan: proceed Anesthesia type and monitoring: general LMA and standard monitoring Results Review: All pre-operativ
[2023-03-17] VITALS (9 sets, daily range): BP systolic 145–164; BP diastolic 62–88; PULSE 63–72; RESP 14–16; TEMP 36–36.8; O2SAT 94–98
--- NOTE | ~2023-03-17 | XR_ITS ---
EXAMINATION: XR fluoroscopy no charge DATE: 03/17/2023 08:46 INDICATION: Right foot first metatarsophalangeal arthrodesis and second hammertoe correction TECHNIQUE: 2 fluoroscopic images of the right forefoot were obtained during procedure performed by Dr Foster Georges. Radiologist was not present for the imaging or procedure. The amount of fluoroscopy time used during this procedure was 0.1 minutes. COMPARISON: None. FINDINGS: First metatarsophalangeal arthrodesis with dorsal plate and screw fixation. Additional arthrodesis at the second proximal interphalangeal joint with internal fixation device. Likely shortening osteotomi es at the necks of the second and third metatarsals is fixed with a pair of screws. This is not descr ibed in the provided clinical history and could be chronic. Alignment appears near-anatomic. No fract ure. Mild osteoarthritis at a few of the interphalangeal joints. IMPRESSION: 1. Instrumented first metatarsophalangeal arthrodesis, second hammertoe correction with proximal inte rphalangeal joint arthrodesis and shortening osteotomies with screw fixation at the second and third metatarsals which are all in near anatomic alignment. No other acute osseous abnormality. See procedu re note for further detail. Reviewed, dictated and finalized at location A. ICAL ACCOUNT MANAGER IMPRESSION: 1. Instrumented first metatarsophalangeal arthrodesis, second hammertoe correct ion with proximal interphalangeal joint arthrodesis and shortening osteotomies with screw fixation at the second and third metatarsals which are all in near a natomic alignment. No other acute osseous abnormality. See procedure note for f urther detail.
[2023-03-17] MEDS: LACTATED RINGERS 1,000 ML 30 ML IV CONT (06:57)
--- NOTE | 2023-03-17 07:05 | WPDHPUPDATE1 ---
History and Physical Update Update Date/Time: 03/17/23 07:05 History and Physical has been reviewed, including an updated exam of the patient. There are NO changes in the patient's condition. Risks, benefits, and alternatives have been discussed and questions answered. Patient agrees to proceed with procedure.
--- NOTE | 2023-03-17 07:17 | WPDANESPNB ---
Anes - Peripheral Nerve Block Date/Time: 03/17/23 07:17 I have discussed with the patient/family/POA the placement of a peripheral nerve block for post-operative pain management, including associated risks, benefits, complications, and side effects. Alternative methods of post-operative analgesia were detailed. Questions were solicited and answers provided to the satisfaction of the patient/family/POA. Time-Out: A pre-procedural Time-Out was completed immediately before starting the procedure and confirmed: Patient Identification, Site, Procedure, Patient Position and the Availability of Requisite Equipment. Clinical Indications: Acute post-operative pain management requested by the operative surgeon. Nerve Block Insertion Note Anes-nerve block: posterior fossa sciatic left and adductor canal left Patient position: supine (for adductor canal) and other (right lateral for popliteal) Skin prep: chlorhexidine Needle: 22 gauge, stimulating, insulated echogenic needle. Needle length: 80 mm Technique: nerve stimulation lost at (mA) (for popliteal lost at 0.2) and ultrasound Injectate: bupivacaine 0.5% with epi 5 mcg/ml (20 mL for popliteal, 10 mL for adductor canal (no epi)) Observations: tolerated well Complications: none Procedure start time:: 724 Procedure end time:: 729
[2023-03-17] MEDS: ceFAZolin SODIUM 2 GM/20 ML SW SYRINGE IV PUSH (07:40)
[2023-03-17 08:53] LABS: Glucose Point of Care 121 mg/dl (65-105)
[2023-03-17 09:13] LABS: Glucose Point of Care 127 mg/dl (65-105)
--- NOTE | 2023-03-17 09:15 | W.PM.PROC2 ---
Procedure Note - Detailed Date of Procedure 03/17/23 Pre-op Diagnosis 1. Arthritic Bunion right foot 2. Metatarsalgia second and third metatarsal phalangeal joints right foot 3. Hammertoe second digits right foot Post-op Diagnosis Same Procedure Performed 1. Arthrodesis of the first metatarsal phalangeal joint right foot 2. Ruth shortening second and third metatarsal osteotomy right foot 3. Hammertoe repair second digit right foot Surgeon Mack Georges JR, JACQUES Anesthesia General and Regional Indications Painful right forefoot Findings DJD first MPJ right foot Description of Procedure PROCEDURE IN DETAIL: Under mild sedation, the patient was brought into the operating room, placed on the operating table in supine position. A pneumatic ankle tourniquet was placed about the patient's ipsilateral ankle. Following general anesthesia and a popliteal fossa block, the foot was then scrubbed, prepped, and draped in the usual aseptic manner. An Esmarch bandage was then used to exsanguinate the patient's foot and the pneumatic ankle tourniquet was then inflated. Surgery began in the following manner: Attention was directed to the dorsal medial aspect of the 1st metatarsophalangeal joint where there was a hallux valgus deformity noted with a promienent first metatarsal phalangeal joint dorsal medially. The incision was made starting along the central shaft of the 1st metatarsal and extending just proximal to the interphalangeal joint of the hallux. The incision was continued deep down through the subcutaneous tissues using sharp and blunt dissection. All bleeders were cauterized as necessary. At this point, the dissection was continued down to the level of the periosteum and capsular structures overlying the 1st metatarsophalangeal joint. A full length periosteum and capsular incision was made just medial to the extensor hallucis longus tendon. The periosteum and capsular structures were freed from the base of the proximal phalanx as well as the distal 1st metatarsal. At this point, the 1st metatarsophalangeal joint was identified. There was loss of articular cartilage to the head of the 1st metatarsal as well as the base of the proximal phalanx worse medially. There was broadening and hypertrophy of the 1st metatarsophalangeal joint. Utilizing a sagittal bone saw, the hypertrophied 1st metatarsal was resected dorsally, medially, and laterally. A power bur was used to make sure that there were no rough edges and also to further debride the hypertrophic 1st metatarsal. Next, a rongeur was used to resect the hypertrophic base of the proximal phalanx. At this point, the reamer system for the [employer] CrossCHECK system was used to denude the degenerative cartilage from the head of the 1st metatarsal as well as the base of the proximal phalanx. The cartilage and subchondral bone were fully debrided utilizing the reamer system until healthy bleeding bone was noted. I flushed the surgery site with copious amounts of sterile saline. Next, a 2-0 drill bit was used to further fenestrate the head of the 1st metatarsal as well as the base of the proximal phalanx in order to allow fusion across the 1st metatarsophalangeal joint. Next, a 0.045 inch K-wire was driven from the medial aspect of the base of the proximal phalanx into the head of the 1st metatarsal in order to serve as temporary fixation. A large steel plate was used to make sure that the hallux was in a rectus position both in the sagittal plane as well as the frontal and transverse plane. Excellent position of the hallux was noted. Next, a CrossCHECK plate was placed atop the 1st metatarsophalangeal joint held in position with Kinsey wires. Utilizing standard principles and techniques, the 2 distal drill holes were drilled and two 2.7mm mm fully-threaded locking screws were driven from dorsal to plantar holding the distal aspect of the plate intact. At this point, a 3.5mm lag scre
--- NOTE | 2023-03-17 09:27 | SUR.PHASEI ---
0905-patient arrived to pacu #1 laying on back with anesthesia and OR nurse at bedside. patient's vs per monitor. temp treated with lamberto hugger. will continue to monitor vs per protocol. patient reports no pain, 0/10 and reports that the right foot is still numb. report received from OR nurse and anesthesiologist. glucose checked, results noted, no intervention. 0928- dr at bedside updating patient on procedure and results. 0930-patient is sitting in bed at 45 degrees. alert and able to make needs known. pain reported as, 0/10 .
--- NOTE | 2023-03-17 12:37 | WPDANESPN ---
Anes - Prog Note Post-Op Date/Time: 03/17/23 12:37 Cardiovascular status: normal Respiratory status: normal Airway patency: baseline Mental status: baseline Post-Op hydration status: normal Vital Signs: Last Vital Signs Temp 36.8 C 03/17/23 09:50 Pulse 68 03/17/23 10:30 Resp 16 03/17/23 10:30 BP 158/62 H 03/17/23 10:30 Pulse Ox 98 03/17/23 10:30 O2 Del Method Room Air 03/17/23 10:30 O2 Flow Rate 6 03/17/23 09:05 Pain Score (VAS): 0 I/O: Intake & Output 03/16/23 03/17/23 03/17/23 23:59 07:59 15:59 Intake Total 100 Balance 100 03/17/23 03/17/23 06:36 09:10 POC Capillary Glucose 121 H 127 H Post-procedural complaints: none Patient Feedback: Patient satisfied with anesthetic care. Other Findings: Patient vital signs back to baseline. Patient denies nausea and vomiting. Patient's pain under control. Patient OK for discharge.
== END 2023-03-17 10:42 | disposition home or self-care (01) ==
PROVIDERS: PCP Internal Medicine; Visit Provider Podiatrist Foot & Ankle Surgery
PROC: (CPT 28750; principal; 2023-03-17 07:30)
PROC: (CPT 28299; 2023-03-17 07:30)
PROC: (CPT 28750; 2023-03-17 07:30)
DX: M21.611 Bunion of right foot (principal); M77.41 Metatarsalgia, right foot; M20.41 Other hammer toe(s) (acquired), right foot
CPT/HCPCS: 28750; 28308 ×2; 28285; 99199

== ENCOUNTER 2023-05-17 14:05 | Outpatient (CLI) | payer MEDICARE, OTHER, SELFPAY ==
--- NOTE | ~2023-05-17 | MM_ITS ---
EXAMINATION: MM screening [facility] BI w ramu HISTORY: Screening TECHNIQUE: Craniocaudal and mediolateral oblique 3-D tomosynthesis images were obtained and synthetic 2-D images were generated. CAD analysis was submitted and interpreted. COMPARISON: Comparison to multiple prior studies sequentially, with oldest reviewed study dated 12/19. BREAST PARENCHYMAL COMPOSITION: Dense: The breasts are heterogeneously dense, which may obscure small masses FINDINGS: There is no evidence of suspicious mass, calcification, or architectural distortion to sugg est malignancy in either breast. There has been no suspicious interval change. IMPRESSION: 1. No mammographic evidence of malignancy. 2. Recommend routine screening mammography in one year. BI-RADS Category 1: Negative Reviewed, dictated and finalized at location A. [employer]CTION CHIEF [employer]USTRIAL PLANT
== END 2023-05-17 14:06 | disposition home or self-care (01) ==
LOC: ANHIMG 14:08
PROVIDERS: PCP Internal Medicine; Visit Provider Internal Medicine
DX: Z12.31 Encounter for screening mammogram for malignant neoplasm of breast (principal)
CPT/HCPCS: 77063; 77067

== ENCOUNTER 2024-08-20 09:40 | Outpatient (CLI) | payer MEDICARE, OTHER, SELFPAY ==
--- NOTE | ~2024-08-20 | MM_ITS ---
PROCEDURE: MM SCREENING SANDEEP BI W JACK INDICATION: Asymptomatic, referred for screening mammogram COMPARISON: 05/09/2023 through 11/04/2020 TECHNIQUE: Digital breast tomosynthesis craniocaudal and mediolateral oblique views of Both breasts w ere obtained with computer-aided detection to assist in interpretation of the study. FINDINGS: The breasts are heterogeneously dense, which may obscure small masses. No focal dominant mass, architectural distortion, or suspicious microcalcifications are identified. There are no features to suggest malignancy. IMPRESSION: No evidence of malignancy in the breast. Recommend continued screening mammography BI-RADS 1, NEGATIVE Reviewed, dictated and finalized at location B.
--- OUTSIDE RECORDS SUMMARY | 2024-08-20 09:57 | XMS_ITS | Continuity of Care Document ---
Author Organization [facility] Address [address] [place] [address] [place] [address] Phone Care Team Providers Care Film Editor Name Role Phone Timothy Tirado Unavailable Unavailable Procedures Procedure Date Office/outpatient Visit, Est Office/outpatient Visit, Est Office Consultation Corneal Pachymetry Advance Directives Directive Yes / No Effective Date File Name No Information Encounters Encounter Description Practice Location Reason(s) For Visit Diagnoses Date Provider Providers Copied on Encounter Office/outpati ent Visit, [facility], [address] [place] [address] [address], [place], [place], [id number], [place] tel:[phone] [facility] No Information 8-200 8 Krishnasamy Timothy. [address], [facility], [place]. tel:[phone] Office/outpati ent Visit, [facility], [address] [place] [address] [address], [place], [place], [id number], [place] tel:[phone] [facility] No Information 3-200 8 Krishnasamy Timothy. 2421 [facility] [address], [place], [address], [place]. tel:[phone] Office Consultation [facility], [id number] [place] [address] [address], [place], [place], [id number], [place] tel:[phone] [facility] No Information 2-200 8 Candida Aguirre. 2421 [employer] [address], [address], [place]. tel:[phone] Referring Provider: González Peters OD, [address] [place] [address], [address]. tel:[phone] Family History Family Member Type Diagnosis Age At Onset No Information Payers Payer name Insurance type Covered alliance party ID Authoriza dirk(s) [place] FEP BL [id number] Social History Type Description Quantity Date Captured Comments Sex Female Smoking Status No Information Chief Complaint And Reason For Visit No Information Reason For Referral Reason For Referral No Information History Of Present Illness Encounter Date Complaint History Of Prese nt Illness No Information Functional Status Date Functional Assessmen t No Information Instructions Date Instruction Additional Infor mation No Information Assessments Type Assessment Date No Information Patient Care Teams Name Effective Dates (start - stop) Status Members No Information
--- OUTSIDE RECORDS SUMMARY | 2024-08-20 09:58 | XMS_ITS | Encounter Summary ---
Author Organization [facility] Address [address] [place] [address] Phone Care Team Providers Care Global Position System Technician Name Role Phone Juan Antonio Drake MD Primary Care Provider Juan Antonio Drake MD Primary Care Provider [phone] Juan Antonio Drake MD Primary Care Provider [phone] Silvano Barnett DO Primary Care Provider [phone] Patrice Best MD Unavailable [phone] Grupo Saucedo MD Primary Care Provider [phone] Conrad Negrete MD Primary Care Provider [phone] Encounter Details Date Type Department Care Team (Late st Contact Info) Description 05/24/2012 Orders Only [facility] Provider, MD Phill [address] [place] [id number] Social History Tobacco Use Types Packs/Day Years Used Date Smoking Tobacco: Never Assessed Comments Unknown Sex and Gender Information Value Date Recorded Sex Assigned at Not on file 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 us Historical Provider NURSING COMMUNICATION Fin al Result documented in this encounter Visit Diagnoses Not on filedocumented in this encounter Care Teams Global Position System Technician Relationship Specialty Start Date End Date Juan Antonio Drake MD [address] [facility] [address] [facility] [address] [place] [address] PCP - General 07/21/14 04/30/19 Juan Antonio Drake MD [address] [place] [address] [address] [facility] [address] [place] [address] PCP - General 07/24/13 07/20/14 Juan Antonio Drake MD [address] [place] [address] [address] [facility] [address] [place] [address] PCP - General 05/22/12 07/23/13 Silvano Barnett DO [address] [place] [address] [address] [facility] [address] [place] [address] PCP - General Internal Medicine 05/01/19 07/05/22 Grupo Saucedo MD [address] [place] [address] [address] [facility] [address] [place] [address] PCP - General Internal Medicine 07/06/22 11/29/22 Conrad Negrete MD [address] [place] [address] [address] [facility] [address] [place] [address] PCP - General Internal Medicine 11/30/22 Patrice Best MD [facility] [address] [place] [address] [address] [place] [address] Consulting Physician Neurosurgery 08/21/19 documented as of this encounter
--- OUTSIDE RECORDS SUMMARY | 2024-08-20 09:58 | XMS_ITS | Clinical Summary ---
Author Organization [facility] D Address [address] [place] [address] Care Team Providers Care Production Analyst Name Role Phone Patrice Best MD Unavailable [phone] Conrad Negrete MD Primary Care Provider [phone] Allergies No known active allergies Medications metFORMIN (GLUCOPHAGE) 500 mg tablet Take 1 tablet (500 mg total) by mouth daily after lunch Active levothyroxine (SYNTHROID) 50 mcg tablet Take 1 tablet (50 mcg total) by mouth safety council director before breakfast Active glucosamine-ch ondroitin (Glucosamine-C hondroitin Complx) 500-400 mg capsule Take 1 capsule by mouth daily Active calcium carbonate (CALCIUM 500 ORAL) Take 500 mg by mouth every morning Active omega 6-szp-fvs-fish oil 1,000 mg (120 mg-180 mg) capsule Take 1 capsule (1,000 mg total) by mouth daily Active vitamin B complex with vitamin C tabletIndicati ons:Vitamin Deficiency Prevention Take 1 tablet by mouth daily Active levomefolate-B 2-ceZ47-rogfw oil (METANX) 3 mg-35 mg-2 mg -90.314 mg capsule Take 1 capsule by mouth daily Active pregabalin (LYRICA) 75 mg capsule Take 1 capsule (75 mg total) by mouth 2 (two) times a day Active metroNIDAZOLE (METROCREAM) 0.75 % cream metronidazole 0.75 % topical cream Active aspirin 81 mg enteric coated tabletIndicati ons:prevention of thrombosis Take 1 tablet (81 mg total) by mouth daily 1 Active amLODIPine (NORVASC) 5 mg tablet Take 1 tablet (5 mg total) by mouth daily Active terbinafine (LamiSIL) 250 mg tablet Take 1 tablet (250 mg total) by mouth daily 7 tabs a month 2 Active mupirocin (BACTROBAN) 2 % ointment Apply topically 2 (two) times a day APPLY TO AFFECTED AREA 2 Active minoxidiL (LONITEN) 2.5 mg tablet TAKE 1/4 (ONE QUARTER OF A) TABLET BY MOUTH EVERY OTHER DAY 4 Active lisinopriL (PRINIVIL,ZEST RIL) 40 mg tablet Take 1 tablet (40 mg total) by mouth daily 4 Active rosuvastatin (CRESTOR) 5 mg tablet Take 1 tablet (5 mg total) by mouth daily 4 Active digoxin (LANOXIN) 125 mcg (0.125 mg) tablet TAKE 1 - 2 TABLETS DAILY. ALTERNATING DAYS, EVERY OTHER DAY 135 tablet 2 5 Active Active Problems Problem Noted Date Diagnosed Date Postlaminectomy syndrome, lumbar region 08/19/19 21 Overview (08/18/2020): Added automatically from request for surgery [id number] Assessment & Plan (09/14/2020 9:08 AM CDT): PLAN: - continue activity restrictions as outlined prior to surgery. - I will have the patient obtain L-spine AP lateral x-rays today to check for instrumentation placement - Renew medications: Patient has a script of oxycodone waiting for her at the pharmacy. - she may resume wearing her LSO brace. Appropriate use of this has been reviewed with the patient. -patient to continue and complete the rest of her prophylactic antibiotics. WORK STATUS: - retired FOLLOW UP APPT: With Dr. Best October 08, 2020 with a set of AP and lateral lumbar spine films. Assessment & Plan (09/07/2020 10:40 AM CDT): PLAN: - continue activity restrictions as outlined prior to surgery - patient to continue physical therapy exercises as given for home health care - instructed to hold wearing the LSO brace at this time and to her juan have been discontinued. - Renew medications: Patient has a Percocet script holding at her [facility] pharmacy. Start Keflex 500 mg twice a day for the next 10 days. - patient does not have a bone growth stimulator and she has to hold her LSO brace at this time. - instructed to keep her legs elevated when sitting. WORK STATUS: - RETIRED FOLLOW UP APPT: With Orly on September 14, 2020 for staple removal. Bilateral hip pain 03/10/2020 Assessment & Plan (07/06/2022 1:04 PM CDT): Ms. Wallace has significant bilateral hip pain and knee pain which worsened upon activity. I have encouraged her to every hour to hour and half to minimize this. She may benefit from formal orthopedic evaluation if this worsens. Since she has worsening of symptoms with missing doses of Lyrica, we discussed that she may benefit from going up on her dose of Lyrica. 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 Wallace has a major complaint of bilateral hip pain, right greater than left. She notes an antalgic gait associated with this in the pain is worst in the morning when she 1st gets up. We will refer her to physiatry for formal evaluation. I plan to see her back in 4 months for re-evaluation. Status post lumbar spinal fusion 10/03/2019 Assessment & Plan (07/06/2022 1:02 PM CDT): Ms. Wallace is status post L2-5 decompression and fusion with resolution of neurogenic claudication symptoms, but persistence numbness and hyperesthesia in her legs. She seems to have solid fixation from L2-L5 no lucency of the hardware. She is in the neutral position at L1-2 interspace. She has significant scoliosis through the fusion construct. We discussed different options including continued conservative observation versus reimaging to look for any active compression. She will think about things and let us know how she wishes to proceed. I plan to see her back in 1 year with AP and lateral lumbar spine films at time. If she wishes further workup in the interim, she will call our office and we would arrange for her to undergo a CT myelogram of her lumbar spine. Assessment & Plan (07/20/2021 5:34 PM CDT): Ms. Wallace is status post L2-L5 decompression and fusion. She has a complex problem with the severe degenerative scoliosis of lumbar spine. Is back in the neutral position at L1-2. She has residual numbness in her legs after the leg and back. We discussed that this may over time and is not uncommon for legs to feel profoundly more numb after compressive pathology removed and the pain is relieved. I plan to see her back in 1 year's time with AP and lateral lumbar spine films at that time. 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 Wallace is status post L2-3 decompression and fusion with revision of her hardware 08/27/2020. She has some ongoing leg numbness that she thinks may be progressing. The swelling in her legs is resolved. She has no weakness. I plan to see her back in 6 months with AP and flexion-extension lumbar spine films at that time. Assessment & Plan (10/08/2020 2:26 PM CDT): Ms. Wallace is improved after lumbar decompression and fusion. She has resolution of the pain in her legs. She is still very deconditioned and will increase her activity. She has some new numbness in her right anterior thigh and left lateral leg. She has pitting and edema of her right leg with no tenderness. She also has some edema around the wound without any warmth or drainage. We will give her some Lasix to help decrease the edema in her tissues. I have instructed her to supplement her potassium intake. I plan to see her back in 3 months with flexion-extension lumbar spine films at that time. Assessment & Plan (07/09/2020 1:54 PM CDT): Ms. Wallace is status post L3-5 decompression fusion on 08/19/2019. She was last seen in February of 2020 and seen to be doing well from a lumbar standpoint. She had bilateral hip pain, right greater than left at that time. She was referred to Dr. Pan for evaluation. She complained of numbness and tingling when seen by Dr. Pan and Dr. Pan has focused on injections in her back. Today she seems to have back and proximal buttocks symptoms that are worse than the hip symptoms. We will get AP and lateral lumbar spine films today. We will get an MRI of the lumbar spine. After reviewing the studies, we will speak to her by phone about the results. We will set up of back up appointment in 4 months time with no new films at that time. 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 Wallace is clinically doing well after L3-5 decompression and fusion in August of 2019. She has improved pain and strength. She still has some residual numbness in the left alford which is unchanged. She underwent recent x-ray, which she did not bring to the office. I plan to see her back in 4 months for re-evaluation. Assessment & Plan (12/18/2019 2:47 PM CDT): Ms. Wallace has overall improvement in her back and leg symptoms. She reports that the pain is better. She does have some numbness from just proximal to her left knee to the mid alford. We will give her a script for therapy for back and leg stretching and strengthening and gait training. She will call us in four five weeks. If she is not doing better, we will get any EMG/nerve conduction study of the bilateral lower extremities to evaluate for sensation changes in the left L4 distribution. I plan to see her back in three months time with AP and flexion-extension lumbar spine films at that time. Assessment & Plan (10/03/2019 2:48 PM CDT): Ms. Wallace has relief of her shooting leg pain after lumbar decompression and fusion. She has persistent buttock and bilateral hip pain with proximal leg pain that is diffuse. This seems musculoskeletal in nature. She has a positive VINNY sign bilaterally. We will allow her to restart her Advil in three weeks. She will continue her Lyrica. I plan to see her back in two months for re-evaluation with no new films at that time. If she has persistent symptoms, then we will get a CT of the lumbar spine to better evaluate hardware placement given the scoliosis. 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 SVT (supraventricular tachycardia) 07/24/2017 Assessment & Plan (12/13/2023 2:33 PM CDT): No clinical recurrences. Has been on Lanoxin for many years. Continue. Assessment & Plan (11/30/2022 11:39 AM CDT): No clinical recurrence. Has been managed with Lanoxin for several years preceding my involvement in her care. Will continue. Assessment & Plan (11/16/2020 11:53 AM CDT): Quiescent on digoxin. We addressed today that this is an o ld medicine, but the alternative for treating her would be beta-aurora therapy which has been avoided because of relative bradycardia. Most recent Holter monitor showed nothing more than a supraventricular triplet on digoxin. Assessment & Plan (11/18/2019 11:26 AM CDT): Asymptomatic on low-dose digoxin. She has been on this for a long time and tolerates it well. Assessment & Plan (07/23/2018 10:22 AM CDT): Minimally symptomatic. Assessment & Plan (07/24/2017 11:23 AM CDT): Quiescent on digoxin. Coronary artery disease invo lving [place]ki[place] coronary artery of [place] heart without angina pectoris 07/24/2017 Assessment & Plan (12/13/2023 2:32 PM CDT): Previously characterized as minimal. Continue secondary prevention with aspirin and statin. Assessment & Plan (11/30/2022 11:38 AM CDT): Previously characterized as mild. Continue secondary prevention with aspirin and statin. Assessment & Plan (11/24/2021 3:17 PM CDT): Stable. Previously characterized as mild. Continue secondary prevention with aspirin and statin. Assessment & Plan (11/16/2020 11:50 AM CDT): Mild and asymptomatic. Continue aspirin. Assessment & Plan (11/18/2019 11:26 AM CDT): Gjgi-kf-fechicmc when assessed. She is asymptomatic. Continue aspirin and statin therapy. Assessment & Plan (07/23/2018 10:20 AM CDT): Mild and asymptomatic. Continue aspirin. Assessment & Plan (07/24/2017 11:25 AM CDT): Mild by cardiac catheterization in 1997, with normal stress echo on 07/21/2014. No symptoms of myocardial ischemia. She is on anti-platelet therapy. Unspecified inflammation of eyelid 08/20/2015 Obstructive sleep apnea syndrome 03/08/2013 Hypersomnia 12/12/2012 Peripheral nerve disease 11/15/2012 Encephalopathy 11/15/2012 Mixed hyperlipidemia 05/22/2012 Overview (06/24/2016): Hyperlipidemia Assessment & Plan (12/13/2023 2:33 PM CDT): Reasonably well controlled today with an LDL of 74 mg/dL. Continue Crestor. Assessment & Plan (11/30/2022 11:38 AM CDT): Reasonably well controlled with an LDL today of 76 mg/dL. Continue Crestor. Assessment & Plan (11/24/2021 3:18 PM CDT): LDL today is 83 mg/dL. She shares with me that she exercises 5 days a week and eats inappropriate diet. Unlikely to achieve any further benefit with diet and exercise. Plan: Increase Crestor to 20 mg daily and discontinue Lopid to minimize any interactions. Assessment & Plan (11/16/2020 11:50 AM CDT): On chronic lipid lowering therapy with good control. No changes made. Assessment & Plan (11/18/2019 11:27 AM CDT): On chronic lipid lowering therapy with good control. No changes made. Assessment & Plan (07/23/2018 10:20 AM CDT): On chronic lipid lowering therapy with good control. No changes made. Assessment & Plan (07/24/2017 11:24 AM CDT): On chronic lipid lowering therapy with good control. No changes made. Hypertension 05/22/2012 Overview (06/24/2016): Hypertension Assessment & Plan (11/30/2022 11:39 AM CDT): Well controlled. Continue current prescription medications. Assessment & Plan (11/24/2021 3:18 PM CDT): Well controlled. Continue current prescription medications. Assessment & Plan (11/16/2020 11:50 AM CDT): Blood pressure is adequately controlled on current regimen. No change was made. Assessment & Plan (11/18/2019 11:26 AM CDT): Blood pressure is adequately controlled on current regimen. No change was made. Assessment & Plan (07/23/2018 10:20 AM CDT): Blood pressure is adequately controlled on current regimen. No change was made. Assessment & Plan (07/24/2017 11:22 AM CDT): Blood pressure is adequately controlled on current regimen. No change was made. Impaired glucose tolerance 05/22/2012 Overview (06/24/2016): Glucose intolerance (impaired glucose tolerance) Fuchs' corneal dystrophy 08/04/2009 Assessment & Plan (12/28/2021 2:17 PM CDT): Stable 11/16/201711/2019 OD 2425 1695 2065 OS 1738 1912 1319 Plan: monitor with repeat confocal OU return 1 year Potential DWEK candidate. Assessment & Plan (11/26/2020 12:19 PM CDT): Stable 11/16/201711/2019 OD 2425 1695 2065 OS 1738 1912 1319 Plan: monitor with repeat confocal OU return 1 year Potential DWEK candidate. Assessment & Plan (11/28/2019 12:33 PM CDT): Stable 11/16/2017 Today OD 2425 1695 OS 1738 1912 Plan: monitor with repeat confocal OU on return October 2019 Assessment & Plan (11/15/2018 11:25 AM CDT): Stable 11/16/2017 OD 2425 OS 1738 Plan: monitor with repeat confocal OU on return October 2019 Assessment & Plan (11/16/2017 11:56 AM CDT): Fuch's OU with minimal K edema OU (phakic 2+NS) No limitation in ADLs Endothelial cell count roughly stable (wide fluctuations OS) Observe; continue donny gtt TID, deon QHS OU Sees Dr Varghese for retina exam Confocal Endothelial Cell Count: Date 2006 2012 2014 2016 today 10/2017 OD 2000 2007 2195 2158 2425 OS 2169 1603 2124 1259 1738 Cataract of both eyes 08/04/2009 Assessment & Plan (12/28/2021 2:23 PM CDT): NVS, able to do ADLs. Monitor, return 1 year BAT/DFE. Assessment & Plan (11/26/2020 12:19 PM CDT): Significant on BAT, but able to do ADLs. Monitor, return 1 year BAT/DFE. Assessment & Plan (11/15/2018 11:12 AM CDT): Stable, monitor Assessment & Plan (11/16/2017 11:44 AM CDT): Not visually significant, observe for now. Resolved Problems Problem Noted Date Diagnosed Date Resolved Date Lumbar stenosis with neurogenic claudication 0 10/08/2020 Assessment & Plan (08/12/2020 3:16 PM CDT): Ms. Wallace has adjacent level stenosis at L2-3 with progressive symptoms of neurogenic claudication unresponsive to conservative treatment. She now wishes to pursue surgical options. We will arrange for her to undergo L2-3 laminectomy and fusion with revision of prior hardware from L3-L5. We will arrange for this to occur at our earliest convenience. We discussed that she can expect a recovery similar to her last surgery. We discussed the risks of surgery also the same. Assessment & Plan (06/03/2019 11:52 AM CDT): Ms. Wallace presents with signs and symptoms of lumbar stenosis with neurogenic claudication. I will have her obtain Lumbar flexion/extension films to assess for instability of her lumbar spine. Will review her MRI and above xrays with Dr. Best upon his return to formulate further plan of care. Patient has tried and failed conservative measures and is ready to consider surgery. Atrial fibrillation 05/22/2012 07/25/19 18 Overview (06/24/2016): Atrial fibrillation Encounters Date Type Department Care Team Description 06/13/2024 Orders Only [facility] [address] [place] [address] ProviderPhill MD from Last 3 Months Immunizations Immunization Administration Dates Next Due Hep A, Adult 02/20/2007 Influenza, Quadrivalent, Hig h Dose, Preservative Free, Intrr 12/17/2019 Influenza, Trivalent, High D ose, Split, Preservative Free, Intramuscular 12/05/2018,12/17/2017,12/16/2017,12/20,12/31/2015,12/25/2014 Influenza, Trivalent, Preser vative Free, Intramuscular 12/09/2011 Influenza, Unspecified 01/01/2014,01/02/2013 Pneumococcal Conjugate PCV 13 12/20/2016 Pneumococcal Polysaccharide PPV23 12/05/2018 ZOSTER LIVE 01/06/2006 ZOSTER Recombinant 11/04/2017, 8,08/15/2017,08/14 Surgical History Surgery Date Site/Laterality Comments KNEE ARTHROSCOPY Bilateral TRIGGER FINGER RELEASE 03/20/2018 - 03/19/2019 (3) TOTAL KNEE ARTHROPLASTY Bilateral CARDIAC CATHETERIZATION 03/20/1997 - 03/19/1998 mild CAD ABDOMINOPLASTY POSTERIOR FUSION LUMBAR SPINE 08/19/2019 L3-5 PSF (Nasir) POSTERIOR FUSION LUMBAR SPINE 08/27/2020 S/P L3-5 Revision/Exploration, L2-3 Decompression, L2-5 Posterior Spinal Fusion (Nasir) Medical History Medical History Date Comments Hypertension Fuchs' corneal dystrophy MGD (meibomian gland disease) Diabetes mellitus (HCC) DVT (deep venous thrombosis) ([facility]) 01/2019 LLE after long plane trip, resolved without recurrence and off eliquis CAD (coronary artery disease) Dyslipidemia Osteoarthritis Neurogenic claudication due to lumbar spinal stenosis Obesity (BMI 35.0-39.9 witho ut comorbidity) BMI 37 History of PSVT (paroxysmal supraventricular tachycardia) on digoxin Sleep apnea CPAP compliant Postlaminectomy syndrome, lumbar region Family History Medical History Relation Name Comments Coronary artery disease Daughter 2 Coronary artery disease Father Heart attack Father Macular degeneration Mother Coronary artery disease Sister 2 Relation Name Status Comments Daughter 1 Alive Daughter 2 Father Alive Mother Other Nephew Alive Sister 1 Alive Sister 2 Social History Tobacco Use Types Packs/Day Years Used Date Smoking Tobacco: Former Cigarettes 1 30 1 976 - 2006 Smokeless Tobacco: Never Tobacco Cessation:Counseling Given: Not Answered Comments:Smoking History Packs/day: 1 Packs Alcohol Use Standard Drinks/Week Comments Not Currently 0 (1 standard drink = 0.6 oz pur e alcohol) AUDIT-C Answer Date Recorded Q1: How often do you have a drink containing alc ohol? 2-4 times a month 08/25/2020 Q2: How many drinks containi ng alcohol do you have on a typical day when you are drinking? 1 or 2 08/25/2020 Q3: How often do you have si x or more drinks on one occasion? 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 Gender Identity Not on file Sexual Orientation Not on file Occupation Industry Job Start Date Job End Date Retired Not on file Not on file Not on file Obstetrics History Last Filed Vital Signs Vital Sign Reading Time Taken Comments Blood Pressure 122/74 12/13/2023 1:45 PM CDT Pulse 62 12/13/2023 1:45 PM CDT Temperature 36.9 C (98.4 F) 09/14/2020 9:02 AM CDT Respiratory Rate 14 07/06/2022 11:2 2 AM CDT Oxygen Saturation 98% 12/13/2023 1:45 PM CDT Inhaled Oxygen Concentration - - Weight 101.4 kg (223 lb 9.6 oz) 12/13/2023 1:45 PM CDT Height 170.2 cm (5' 7) 12/13/2023 1:45 PM CDT Body Mass Index 35.02 12/13/2023 1:45 PM CDT Plan of Treatment Health Maintenance Due Date Last Done Comments Osteoporosis Screening-Bone Density Scan 1945 DTaP/Tdap/Td Vaccine (1 - Tdap) 10/12/1955 Hepatitis B Screening 1962 Well Visit 65+ 2009 Depression Screening 06/02/2020 06/03/2019, 06/03/19 20 Fall Risk Assessment 08/29/2021 08/29/2020, 12/18/19 20 Influenza Vaccine (Season Ended) 2024 12/17/2019, 12/05/2018, 12/17/2017, Additional history exists Hepatitis C Screening Completed 11/07/2012 Zoster Vaccine Completed 11/04/2017, 10/18, 08/15/2017, Additional history exists Pneumococcal vaccine 65+ Completed 12/05/2018, 05/2016 Medical Devices Implanted Type Area Link Cutter Device Identifier Shelf Expiration Date Model / Serial / Lot Core Link [id number] Guffey 5.5mm 60mm Line Prebent Alex Spinal Nonsterile 5500 Series - Sn/A - [id number] Implanted:Qty: 1 on 08/19/2019 by Patrice Best MD at [facility] Other - see comments N/A: Back Core Link [id number] / N/A / Description:alex Core Link [id number] Guffey 5.5mm 65mm Line Prebent Alex Spinal Nonsterile 5500 Series - Sn/A - [id number] Implanted:Qty: 1 on 08/19/2019 by Patrice Best MD at [facility] Other - see comments N/A: Back Core Link [id number] / N/A / Description:alex Core Link [id number] Guffey 6.5mm 45mm Spine Pedicle Screw Bone 5500 Series - [id number] Implanted:Qty: 6 on 08/19/2019 by Patrice Best MD at [facility] N/A: Spine Lumbar Core Link [id number] / / Core Link [id number] Guffey Screw Set 5500 Series - [id number] Implanted:Qty: 6 on 08/19/2019 by Patrice Best MD at [facility] N/A: Spine Lumbar Core Link [id number] / / [employer] [id number] Inqu Paste Mix Plus Shell Freezing Machine Operator 10cc Bone Graft Hyaluronic Acid Poly - [id number] Implanted:Qty: 1 on 08/19/2019 by Patrice Best MD at [facility] N/A: Spine Lumbar [employer] 02/07/2021 [id number] / / [id number] Core Link [id number] Guffey 5.5mm 95mm Line Prebent Alex Spinal Nonsterile 5500 Series - [id number] Implanted:Qty: 1 on 08/27/2020 by Patrice Best MD at [facility] N/A: Back Core Link [id number] / / Medtronic Sofamor [employer]ane[employer] [id number] Infuse 18mm 26mm Absorbable Sponge Sterile Water Syringe Needle - [id number] Implanted:Qty: 1 on 08/27/2020 by Patrice Best MD at [facility] N/A: Spine Lumbar Medtronic Inc [id number] 06/17/2022 [id number] / / [id number] Allosource [id number] Freeze Dried Chips 4-10mm Graft 30ml Bone Cancellous - [id number] Implanted:Qty: 1 on 08/27/2020 by Patrice Best MD at [facility] N/A: Spine Lumbar [employer] 05/18/2025 [id number] / / [id number] Core Link [id number] Guffey 6.5mm 45mm Spine Pedicle Screw Bone 5500 Series - [id number] Implanted:Qty: 2 on 08/27/2020 by Patrice Best MD at [facility] N/A: Back Core Link [id number] / / Core Link [id number] Guffey 7mm 45mm Spine Pedicle Screw Bone Nonsterile 5500 Series - [id number] Implanted:Qty: 6 on 08/27/2020 by Patrice Best MD at [facility] N/A: Back Core Link [id number] / / Core Link [id number] Guffey Screw Set 5500 Series - [id number] Implanted:Qty: 8 on 08/27/2020 by Patrice Best MD at [facility] N/A: Back Core Link [id number] / / Core Link [id number] Guffey 5.5mm 85mm Line Prebent Alex Spinal Nonsterile 5500 Series - [id number] Implanted:Qty: 1 on 08/27/2020 by Patrice Best MD at [facility] N/A: Back Core Link [id number] / / Procedures Procedure Name Priority Date/Time Associated Diagnosis Comments CBC WITH AUTO DIFFERENTIAL Routine 06/12/2024 11:35 AM CDT COMPREHENSIVE METABOLIC PANEL Routine 06/12/2024 11:35 AM CDT LIPID PANEL Routine 06/12/2024 11:35 AM CDT SERUM HEPATITIS C AB Routine 11/07/2012 5:53 AM CDT from Last 3 Months or Most Recently Relevant to Health Maintenance Results * (ABNORMAL) CBC with auto differential (06/12/2024 11:35 AM CDT) SCRIBED WBC 5.2 l - h k/cumm [facility] SCRIBED RBC 5.26 l - h m/cumm [facility] SCRIBED Hemoglobin 15.5 11.1 - 15.9 g/dL [facility] SCRIBED Hematocrit 48.1(A) 34.0 - 46.6 % [facility] SCRIBED MCH 29.5 l - h pg [facility] SCRIBED MCHC 32.2 l - h g/dL [facility] SCRIBED RDW 13.1 l - h g/dl [facility] SCRIBED Platelets 195 150 - 450 k/cumm [facility] SCRIBED Lymphocytes 26 l - h % [facility] SCRIBED Monocytes 9 l - h % [facility] SCRIBED Neutrophils 62 l - h % [facility] SCRIBED Imm Granulocytes 0 l - h % [facility] SCRIBED Eosinophils 2 l - h % [facility] SCRIBED Basophils 1 l - h % [facility] SCRIBED Lymphocytes Abs 1.4 l - h k/cumm [facility] SCRIBED Monocytes Abs 0.5 l - h k/cumm [facility] SCRIBED Neutrophils Abs 3.2 l - h k/cumm [facility] SCRIBED Imm Granulocytes Abs 0.0 l - h [facility] SCRIBED Eosinophils Abs 0.1 l - h k/cumm [facility] SCRIBED Basophils Abs 0.1 l - h k/cumm [facility] SCRIBED MCV 91 l - h fl [facility] Blood Historical Provider LAB BLOOD ORDERABLES Edit ed Result - Final [facility] * (ABNORMAL) Lipid panel (06/12/2024 11:35 AM CDT) SCRIBED Cholesterol, Total 143 100 - 199 [facility] SCRIBED HDL 33 0 - 39 [facility] SCRIBED LDL 70 0 - 99 [facility] SCRIBED Triglycerides 248(A) 0 - 149 [facility] Blood Historical Provider LAB BLOOD ORDERABLES Edit ed Result - Final [facility] * Comprehensive metabolic panel (06/12/2024 11:35 AM CDT) SCRIBED Sodium 141 l - h mmol/L [facility] SCRIBED Potassium 4.4 l - h mmol/L [facility] SCRIBED Chloride 106 l - h mmol/L [facility] SCRIBED Carbon Dioxide 21 l - h mmol/L [facility] SCRIBED Urea Nitrogen (BUN) 15 l - h mg/dl [facility] SCRIBED Creatinine 0.99 l - h mg/dl [facility] SCRIBED Glucose 114 l - h mg/dl [facility] SCRIBED Calcium 9.6 l - h mg/dl [facility] SCRIBED Bilirubin 0.7 l - h mg/dl [facility] SCRIBED Plasma Protein 6.8 l - h g/dl [facility] SCRIBED Albumin 4.1 l - h g/dl [facility] SCRIBED Alkaline Phosphatase 75 l - h Units/L [facility] SCRIBED Alanine Transaminase (ALT) 26 l - h Units/L [facility] SCRIBED Aspartate Transaminase (AST) 26 l - h Units/L [facility] SCRIBED eGFR in NonAfrican Canadian 58 l - h [facility] Blood Historical Provider LAB BLOOD ORDERABLES Edit ed Result - Final [facility] * Serum Hepatitis C ab (11/07/2012 5:53 AM CDT) HCV ab Negative NEG HISTORICAL RESULTS Comment: Interpretive Data If confirmation is required, call Laboratory Customer Service to request sample to be sent to [facility] for Hepatitis C Virus (HCV) RNA Detection and Quantitation by Real-Time Reverse Sleeve Wheel Maker-PCR (RT-PCR). Current interpretive data was last revised on 2011 Serum 11/07/2012 5:53 AM CDT Narrative HISTORICAL RESULTS - 11/08/2012 4:58 AM CDT Test performed at [facility], [address] [facility], [place], [place], [facility], [address]. Mitchel Rooney MD PhD LAB BLOOD ORDERABL ES Final Result Performing Organization Address City/[facility]/ZIP Co de Phone Number HISTORICAL RESULTS from Last 3 Months or Most Recently Relevant to [place] [address] [facility] BENEFIT PLAN MEDICARE [facility] BENEFIT PLAN [facility] HMO/PPO Address: [address] [place] [address] [place] [address] MEDICARE [facility] [place] [address] MEDICARE [facility] BENEFIT PLAN Advance Directives For more information, please contact: [phone] * Full Code (Latest Code Status on File) Date Activated Date Inactivated Comments 08/27/2020 11:30 AM 08/29/2020 5:18 PM * Full Code Date Activated Date Inactivated Comments 08/19/2019 5:17 PM 08/21/2019 7:46 PM Care Teams Production Analyst Relationship Specialty Start Date End Date Conrad Negrete MD [address] [facility] [address] [place] [address] PCP - General Internal Medicine 11/30/22 Patrice Best MD Consulting Physician Neurosurgery 08/21/19
--- OUTSIDE RECORDS SUMMARY | 2024-08-20 09:58 | XMS_ITS | Clinical Summary ---
Author Organization [facility] [employer] Address [address] [place] [address] Care Team Providers Care Manager Mac Name Role Phone Darvin Guerra MD Unavailable [phone] Juan Antonio Drake MD Primary Care Provider [phone] Source Comments [facility],non-owned Affiliates and Associated Physician Practices is amultiple site organization consisting of ambulatory clinics and hospital sitesin [place], [place], [place] and [place]. This disclosure is being madepursuant to the Care Everywhere program and may not contain all information available regarding this patient. Last updated 17.[facility] [employer] Allergies No known active allergies Medications * Be aware that medications may not be up to date on this document. Alwaysverify current medications with the patient. digoxin (LANOXIN) 0.125 MG tablet Take 1 tablet by mouth once daily 07/07/19 19 Active metFORMIN (GLUCOPHAGE) 500 MG tablet Take 500 mg by mouth daily before lunch 07/20/19 13 Active rosuvastatin (CRESTOR) 10 MG tablet Take 10 mg by mouth once daily 07/20/19 13 Active pregabalin (LYRICA) 75 MG capsule Take 1 capsule by mouth 2 times daily Activ e lisinopril (PRINIVIL; ZESTRIL) 20 MG tablet Take 10 mg by mouth once daily 06/12/19 19 Active levothyroxine (SYNTHROID) 50 MCG tablet Take 1 tablet by mouth once daily 06/21/19 19 Active Glucosamine-Cho ndroitin 750-600 MG Take 1 tablet by mouth once daily 05/23/19 13 Active L-Methylfolate- Ocfct-Y70-G2 (METANX) 3-90.314-2-35 MG capsule Take 1 capsule by mouth once daily Active Calcium Citrate-Vitamin D (CALCIUM + D PO) Take by mouth once daily Active [place]-3 Fatty Acids (OMEGA 3 PO) Take 2 tablets by mouth 2 times daily Activ e B Complex-C (SUPER B COMPLEX PO) Take by mouth once daily Active gemfibrozil (LOPID) 600 MG tablet Take 600 mg by mouth 2 times daily,before breakfast and supper Acti ve biotin 5 MG tablet Take 5 mg by mouth once daily Active amoxicillin (AMOXIL) 500 MG capsuleIndicati ons:Aftercare following left knee joint replacement surgery amoxicillin 500 mg capsule Active meloxicam (MOBIC) 15 MG tablet Take 1 tablet by mouth once daily 30 tablet 5 10/30/19 19 Active HYDROcodone-libby taminophen (NORCO) 10-325 MG tablet Take 0.5-1 tablets by mouth every 6 hours as needed 28 tablet 10/30/19 19 Active Influenza Vac Typ A&B Surf Ant (EZ FLU SHOT-FLUVIRIN) 0.5 ML KT Fluvirin 5566-0250 45 mcg (15 mcg x 3)/0.5 mL intramuscular suspension TO BE ADMINISTERED BY PHARMACIST FOR IMMUNIZATION Active ALPRAZolam (XANAX) 0.25 MG tablet alprazolam 0.25 mg tablet Active aspirin-dipyrid amole CR 12hr (AGGRENOX) 25-200 MG capsule Aggrenox 25 mg-200 mg capsule, extended release Active cefdinir (OMNICEF) 300 MG capsule cefdinir 300 mg capsule Active ciclopirox (PENLAC) 8 % solution ciclopirox 8 % topical solution APPLY DIRECTED Active ciprofloxacin (CIPRO) 500 MG tablet ciprofloxacin 500 mg tablet Active clindamycin (CLEOCIN T) 1 % solution clindamycin phosphate 1 % topical solution Active cyclobenzaprine (FLEXERIL) 10 MG tablet cyclobenzaprine 10 mg tablet Active metaxalone (SKELAXIN) 800 MG tablet metaxalone 800 mg tablet Active niacin CR (NIASPAN) 500 MG tablet niacin ER 500 mg tablet,extended release 24 hr Active pneumococcal 13-Yomaira Conj (PREVNAR 13) vaccine Prevnar 13 (PF) 0.5 mL intramuscular syringe TO BE ADMINISTERED BY PHARMACIST FOR IMMUNIZATION Active quiNIDine gluconate CR (QUINAGLUTE) 324 MG tablet quinidine gluconate ER 324 mg tablet,extended release Active rivaroxaban (XARELTO) 10 MG tablet Xarelto 10 mg tablet Active sodium chloride, hypertonic, (GABI-128) 5 % ophthalmic solution 1 drop by Ophthalmic route Active sulfamethoxazol e-trimethoprim (BACTRIM DS; SEPTRA DS) 800-160 MG tablet sulfamethoxazole 800 mg-trimethoprim 160 mg tablet Active terbinafine (LAMISIL) 250 MG tablet terbinafine HCl 250 mg tablet Active zoster vaccine recombinant adjuvanted (SHINGRIX) 50 MCG/0.5ML SUSR injection Shingrix (PF) 50 mcg/0.5 mL intramuscular suspension, kit Active Active Problems Problem Noted Date Diagnosed Date Primary osteoarthritis of left knee 08/24/2018 ABMD (anterior basement membrane dystrophy) 10/20 Coronary artery disease invo lving [place] coronary artery of [place] heart without angina pectoris 07/24/2017 Overview (08/24/2018): Last Assessment & Plan: Mild and asymptomatic. Continue aspirin. SVT (supraventricular tachycardia) 07/24/2017 Overview (08/24/2018): Last Assessment & Plan: Minimally symptomatic. Family History Medical History Relation Name Comments Diabetes - Type 2 Maternal Grandmother Diabetes - Type 2 Sister Relation Name Status Comments Maternal Grandmother Sister Social History Tobacco Use Types Packs/Day Years Used Date Smoking Tobacco: Former Cigarettes 1 30 1 970 - 2000 Smokeless Tobacco: Never Alcohol Use Standard Drinks/Week Comments Yes 0 (1 standard drink = 0.6 oz pur e alcohol) occas Comments Unknown Sex and Gender Information Value Date Recorded Sex Assigned at Not on file Legal Sex Female 6:28 AM SPACE ENGINEER Gender Identity Not on file Sexual Orientation Not on file Last Filed Vital Signs Vital Sign Reading Time Taken Comments Blood Pressure 160/76 09/20/2018 7:25 AM CDT Pulse 85 09/20/2018 7:25 AM CDT Temperature 36.7 C (98.1 F) 09/20/2018 7:25 AM CDT Respiratory Rate 18 09/20/2018 7:25 AM CDT Oxygen Saturation 98% 09/20/2018 7:25 AM CDT Inhaled Oxygen Concentration - - Weight 102.1 kg (225 lb) 09/17/2018 6:10 AM CDT Height 170.2 cm (5' 7) 09/17/2018 6:10 AM CDT Body Mass Index 35.24 09/17/2018 6:10 AM CDT Plan of Treatment Health Maintenance Due Date Last Done Comments BONE DENSITY TESTING 1944 DTAP/TDAP/TD VACCINES (1 - Tdap) 10/12/1963 PNEUMOCOCCAL VACCINE 50+ (1 of 1 - PCV) 1994 ZOSTER VACCINE (1 of 2) 1994 Respiratory Syncytial Virus (RSV) Vaccine Pt: or over 60 yrs (1 - 1-dose 75+ series) 10/12/2019 COVID-19 VACCINE ( - 2023-2 5 season) 2023 DEPRESSION SCREENING 03/20/2024 INFLUENZA VACCINE (Season Ended) 2024 12/09/19 12 HEPATITIS B VACCINE Aged Out No longe r eligible based on patient's age to complete this topic HIB VACCINE Aged Out No longer eligi ble based on patient's age to complete this topic HPV VACCINE Aged Out No longer eligi ble based on patient's age to complete this topic MENINGOCOCCAL (Group B) VACC INE SHARED DECISION-MAKING Aged Out No longer eligibl e based on patient's age to complete this topic MENINGOCOCCAL GROUPS A/C/Y/W VACCINE Aged Out No longer eligible b ased on patient's age to complete this topic Medical Devices Implanted Type Area Disintegrator Feeder Device Identifier Shelf Expiration Date Model / Serial / Lot Cmnt Bone Cblt 40gm Hvisc Strl Implanted:Qty: 1 on 09/17/2018 by Darvin Guerra MD at [facility] Left: Knee [employer] 09/13/2019 [id number] / / [id number] Cmpnt Ptlr 28mm 1 Pg Wire Ascnt Arcm Kn Implanted:Qty: 1 on 09/17/2018 by Darvin Guerra MD at [facility] Left: Knee [employer] 07/31/2023 [id number] / / [id number] Tray Tib 71mm Kn Cocr I Beam Implanted:Qty: 1 on 09/17/2018 by Darvin Guerra MD at [facility] Left: Knee [employer] 07/06/2028 [id number] / / [id number] Cmpnt Fem Kn Lt Cr Cmnt Prm Vngrd Intlk Implanted:Qty: 1 on 09/17/2018 by Darvin Guerra MD at [facility] Left: Knee [employer] 07/22/2028 [id number] / / [id number] Brng [id number] Vngrd Arcm Kn Ant Stab Implanted:Qty: 1 on 09/17/2018 by Darvin Guerra MD at [facility] Left: Knee [employer] 07/03/2023 [id number] / / [id number] [place] [address] [employer] [facility] MEDICARE MEDICARE [employer] [facility] Advance Directives * Full Code (Latest Code Status on File) Date Activated Date Inactivated Comments 09/17/2018 10:26 AM 09/20/2018 2:48 PM Care Teams Manager Mac Relationship Specialty Start Date End Date Juan Antonio Drake MD [address] [place] [id number] PCP - General 12/24/20 [place] [address] [facility] [address] [place] [address] Orthopedic Surgery 08/23/18
--- OUTSIDE RECORDS SUMMARY | 2024-08-20 09:58 | XMS_ITS | Referral Summary ---
Author Organization [facility] Address [address] [place] [address] Care Team Providers Care Wet Primer Powder Blender Name Role Phone Patrice Best MD Unavailable [phone] Conrad Negrete MD Primary Care Provider [phone] Encounters Date Type Department Care Team Description 06/13/2024 Orders Only [facility] Cardiology [address] [place] [address] Provider, MD Phill from Last 3 Months Allergies No known active allergies Medications metFORMIN (GLUCOPHAGE) 500 mg tablet Take 1 tablet (500 mg total) by mouth daily after lunch Active levothyroxine (SYNTHROID) 50 mcg tablet Take 1 tablet (50 mcg total) by mouth sales associate key holder before breakfast Active glucosamine-ch ondroitin (Glucosamine-C hondroitin Complx) 500-400 mg capsule Take 1 capsule by mouth daily Active calcium carbonate (CALCIUM 500 ORAL) Take 500 mg by mouth every morning Active omega 1-oez-mee-fish oil 1,000 mg (120 mg-180 mg) capsule Take 1 capsule (1,000 mg total) by mouth daily Active vitamin B complex with vitamin C tabletIndicati ons:Vitamin Deficiency Prevention Take 1 tablet by mouth daily Active levomefolate-B 9-qtB80-vkivg oil (METANX) 3 mg-35 mg-2 mg -90.314 [...] (08/18/2020): Added automatically from request for surgery [id number] Assessment & Plan (09/14/2020 9:08 AM CDT): [...] has a Percocet script holding at her [facility] pharmacy. Start Keflex 500 mg twice a [...] Lyrica. Assessment & Plan (03/10/2020 11:50 AM CERTIFIED LEGAL INVESTIGATOR): Ms. Wallace has a major complaint of [...] time. Assessment & Plan (02/09/2021 5:15 PM CERTIFIED LEGAL INVESTIGATOR): Ms. Wallace is status post L2-3 decompression [...] , Assessment & Plan (03/10/2020 11:50 AM CERTIFIED LEGAL INVESTIGATOR): Ms. Wallace is clinically doing well after [...] (08/13/2019): Added automatically from request for surgery [id number] PVD (posterior vitreous detachment), bilateral 0 11/15/2018 [...] on digoxin. Coronary artery disease invo lving [place] coronary artery of [place] heart without angina pectoris 07/24/2017 Assessment & [...] Assessment & Plan (11/18/2019 11:26 AM CDT): Dllm-xv-wsebjupe when assessed. She is asymptomatic. Continue aspirin [...] to consider surgery. Atrial fibrillation 05/22/2012 07/25/19 Overview (06/24/2016): Atrial fibrillation Immunizations Immunization Administration Dates Next Due Hep A, Adult 02/20/2007 Influenza, Quadrivalent, Hig h Dose, Preservative Free, Intrr 12/17/2019 Influenza, Trivalent, High D ose, Split, Preservative Free, Intramuscular 12/05/2018,12/17/2017,12/16/2017,12/20,12/31/2015,12/25/2014 Influenza, Trivalent, Preser vative Free, Intramuscular 12/09/2011 Influenza, Unspecified 01/01/2014,01/02/2013 Pneumococcal Conjugate PCV 13 12/20/2016 Pneumococcal Polysaccharide PPV23 12/05/2018 ZOSTER LIVE 01/06/2006 ZOSTER Recombinant 11/04/2017, 8,08/15/2017,08/14 Social History Tobacco Use Types Packs/Day Years [...] on file Legal Sex Female 2:07 AM CERTIFIED LEGAL INVESTIGATOR Gender Identity Not on file Sexual Orientation Not on file Occupation Industry Job Start Date Job End Date Retired Not on file Not on file Not on file Last Filed Vital Signs [...] 12/13/2023 1:45 PM CDT Plan of Treatment Not on file Medical Devices Implanted Type Area Outpatient Dietitian Device Identifier Shelf Expiration Date Model / Serial / Lot Core Link [id number] [place] 5.5mm 60mm Line Prebent Alex Spinal Nonsterile 5500 Series - Sn/A - [id number] Implanted:Qty: 1 on 08/19/2019 by Patrice [facility] MD at [facility] Other - see comments N/A: Back Core Link [id number] / N/A / Description:alex Core Link [id number] [place] 5.5mm 65mm Line Prebent Alex Spinal Nonsterile 5500 Series - Sn/A - [id number] Implanted:Qty: 1 on 08/19/2019 by Patrice Best MD at [facility] Other - see comments N/A: Back Core Link [id number] / N/A / Description:alex Core Link [id number] [place] 6.5mm 45mm Spine Pedicle Screw Bone 5500 Series - [id number] Implanted:Qty: 6 on 08/19/2019 by Patrice Best MD at [facility] N/A: Spine Lumbar Core Link [id number] / / Core Link [id number] [place] Screw Set 5500 Series - [id number] Implanted:Qty: 6 on 08/19/2019 by Patirce Best MD at [facility] N/A: Spine Lumbar Core Link [id number] / / [employer] [id number] Inqu Paste Mix Plus Air Tube Releaser 10cc Bone Graft Hyaluronic Acid Poly - [id number] Implanted:Qty: 1 on 08/19/2019 by Patrice Best MD at [facility] N/A: Spine Lumbar [employer] 02/07/2021 [id number] / / [id number] Core Link [id number] [place] 5.5mm 95mm Line Prebent Alex Spinal Nonsterile 5500 Series - [id number] Implanted:Qty: 1 on 08/27/2020 by Patrice Best MD at [facility] N/A: Back Core Link [id number] / / Medtronic Sofamor Danek [id number] Infuse 18mm 26mm Absorbable Sponge Sterile Water Syringe Needle - [id number] Implanted:Qty: 1 on 08/27/2020 by Patrice Best MD at [facility] N/A: Spine Lumbar Medtronic Inc [id number] 06/17/2022 [id number] / / [id number] Allosource [id number] Freeze Dried Chips 4-10mm Graft 30ml Bone Cancellous - [id number] Implanted:Qty: 1 on 08/27/2020 by Patrice Best MD at [facility] N/A: Spine Lumbar [employer] 05/18/2025 [id number] / / [id number] Core Link 28941-96 [place] 6.5mm 45mm Spine Pedicle Screw Bone 5500 Series - [id number] Implanted:Qty: 2 on 08/27/2020 by Patrice Best MD at [facility] N/A: Back Core Link [id number] / / Core Link [id number] [place] 7mm 45mm Spine Pedicle Screw Bone Nonsterile 5500 Series - [id number] Implanted:Qty: 6 on 08/27/2020 by Patrice Best MD at [facility] N/A: Back Core Link 91150-50 / / Core Link [id number] [place] Screw Set 5500 Series - [id number] Implanted:Qty: 8 on 08/27/2020 by Patrice Best MD at [facility] N/A: Back Core Link [id number] / / Core Link [id number] [place] 5.5mm 85mm Line Prebent Alex Spinal Nonsterile 5500 Series - [id number] Implanted:Qty: 1 on 08/27/2020 by Patrice Best MD at [facility] N/A: Back Core Link [id number] / / Procedures Procedure Name Priority Date/Time [...] BLOOD ORDERABLES Edit ed Result - Final Performing Organization Address City/[facility]/ZIP Co de Phone Number [facility] * Comprehensive metabolic panel (06/12/2024 11:35 [...] h Units/L [facility] SCRIBED eGFR in NonAfrican Malagasy 58 l - h [facility] Blood us Historical Provider LAB BLOOD ORDERABLES Edit ed Result - Final [facility] * Serum Hepatitis C ab (11/07/2012 5:53 AM CDT) HCV ab Negative NEG HISTORICAL RESULTS Comment: Interpretive Data If confirmation is required, call Laboratory Customer Service to request sample to be sent to [facility] for Hepatitis C Virus (HCV) RNA Detection and Quantitation by Real-Time Reverse Plate Worker-PCR (RT-PCR). Current interpretive data was last revised on 2011 Serum 11/07/2012 5:53 AM CDT Narrative HISTORICAL RESULTS - 11/08/2012 4:58 AM CDT Test performed at [facility], [address] [place], [place], [facility], [address]. Mitchel Rooney MD PhD LAB BLOOD ORDERABL ES Final Result Performing Organization Address City/[facility]/ZIP Co de Phone Number HISTORICAL RESULTS from Last 3 Months or Most Recently Relevant to Health [place] [address] [facility] HEALTH BENEFIT PLAN MEDICARE [facility] HEALTH BENEFIT PLAN MEDICARE MEDICARE [facility] BENEFIT PLAN MEDICARE [facility] Address: [address] [place] [phone] [facility]ALTH BENEFIT PLAN Advance Directives For more information, please contact: [phone] * Full Code (Latest Code Status on File) Date Activated Date Inactivated Comments 08/27/2020 11:30 AM 08/29/2020 5:18 PM * Full Code Date Activated Date Inactivated Comments 08/19/2019 5:17 PM 08/21/2019 7:46 PM Care Teams Wet Primer Powder Blender Relationship Specialty Start Date End Date Conrad Negrete MD [address] [facility] [address] [place] [address] PCP - General Internal Medicine 11/30/22 Patrice Best MD Consulting Physician Neurosurgery 08/21/19
== END 2024-08-20 09:41 | disposition home or self-care (01) ==
PROVIDERS: PCP Internal Medicine; Visit Provider Internal Medicine
DX: Z12.31 Encounter for screening mammogram for malignant neoplasm of breast (principal)
CPT/HCPCS: 77063; 77067